=== PATIENT | male | born 1955 | race Hispanic/Latino ===

== ENCOUNTER 2016-12-16 15:51 | Emergency (ER) | payer MEDICARE ==
[~2016-12-16] VITALS: Ht 162.6 cm; Wt 60.0 kg
[~2016-12-16 15:51] MED LIST: ACCOLATE10 MG; ACTOS30 MG PO; ACTOS45 MG PO; AMOX/K CLAV875 M1 PO; BACTRIM DS1 TAB PO; CICLOPIROX NAIL L8 % EX; CIPRO XR500 MG PO; COUMADIN5 MG PO; DOXYCYCL HYC100 M3 OR; GABAPENTIN300 MG PO; GLUCOPHAGE500 MG OR; HUMALOG MIX 75/25 SC; HUMALOG100 MG/ML IM; HUMALOG100 MG/ML SC; HUMALOG100 UNIT/M SC; HUMULIN 70/30 SC; HUMULIN R1 M1 SC; INSULIN SY SC; JANUMET1 TAB PO; KEFLEX500 M1 PO; LEVEMIR SC; LEVEMIR1000 UNITS SC; LORATADINE10 M1 PO; LORTAB 5-325 MG1 TAB PO; LORTAB 5/3255 MG PO; LYRICA150 MG PO; METFORMIN500 MG PO; NAPROSYN500 MG OR; NEURONTIN300 MG PO; PERCOCET 5/325M1 TAB PO; PRAVASTATIN SOD10 MG PO; TERBINAFINE250 MG OR; ULTRAM50 M1 PO; VIAGRA50 MG PO; VICTOZA18 MG/3 ML SC; WARFARIN
[2016-12-16 16:23] LABS: HEMATOCRIT 42.4 % (39.0-50.0); HEMOGLOBIN 14.3 g/dl (14.0-18.0); IMMATURE GRANULOCYTES 0.8 % (0.0-1.0); MEAN CORPUSCULAR HGB 28.3 pG CALC (26.0-32.0); MEAN CORPUSCULAR HGB CONC 33.7 g/L CALC (32.0-36.0); NEUT# 3.15 thou/uL (1.82-7.42); RED BLOOD COUNT 5.05 mill/uL (4.70-6.10); RED CELL DISTRI WIDTH 12.9 % (11.5-15.5)
[2016-12-16 16:40] LABS: PROTHROMBIN TIME 10.8 SECONDS (9.0-12.5)
[2016-12-16 16:41] LABS: ALKALINE PHOSPHATASE 67 u/l (38-126); ANION GAP 14 (6-22 (CALC)); BILIRUBIN, TOTAL 0.6 mg/dL (0.0-1.4); BUN 17 mg/dL (8-23); BUN/CREATININE RATIO 32 (12-20 (CALC)); CARBON DIOXIDE 26 mmol/l (22-30); CHLORIDE 104 mmol/l (95-108); CREATININE 0.5 mg/dL (0.7-1.3); GFR > 60 ML/MIN (>=60 (CALC)); GFR FOR AFR.AMER. > 60 ML/MIN (>=60 (CALC)); GLUCOSE 92 mg/dL (82-115); POTASSIUM 3.8 mmol/l (3.5-5.1); SGOT/AST 23 u/l (19-48); SGPT/ALT 40 u/l (11-66); SODIUM 140 mmol/l (137-146); TOTAL PROTEIN 6.9 g/dL (6.3-8.2)
[2016-12-16 16:53] LABS: MYOGLOBIN 31 ng/mL (0 - 121)
[2016-12-16] MEDS ORDERED: NOVOLOG FL100 UNIT/M SC (17:12)
[2016-12-16] MEDS ORDERED: EC-NAPROSYN500 MG PO (17:41)
[2016-12-16 17:56] VITALS: BP 113/72
== END 2016-12-16 17:56 | disposition left against medical advice (07) ==
LOC: ED 15:51
PROVIDERS: Emergency Medicine
DX: E11.9 Type 2 diabetes mellitus without complications (principal); S30.0XXA Contusion of lower back and pelvis, initial encounter; R55 Syncope and collapse; M46.90 Unspecified inflammatory spondylopathy, site unspecified; I25.10 Atherosclerotic heart disease of native coronary artery without angina pectoris; F17.210 Nicotine dependence, cigarettes, uncomplicated; W18.39XA Other fall on same level, initial encounter; Y92.000 Kitchen of unspecified non-institutional (private) residence as the place of occurrence of the external cause; Z79.4 Long term (current) use of insulin

== ENCOUNTER 2017-03-03 15:55 | Inpatient (IN) | payer MEDICARE ==
[~2017-03-03] VITALS: Ht 162.6 cm; Wt 41.0 kg
[~2017-03-03 15:55] MED LIST changes: +EC-NAPROSYN500 MG PO; +NOVOLOG FL100 UNIT/M SC
[2017-03-03 17:13] LABS: HEMOGLOBIN 13.5 g/dl (14.0-18.0); IMMATURE GRANULOCYTES 0.5 % (0.0-1.0); MEAN CORPUSCULAR HGB 28.7 pG CALC (26.0-32.0); MEAN CORPUSCULAR HGB CONC 34.6 g/L CALC (32.0-36.0); NEUT# 5.16 thou/uL (1.82-7.42); RED BLOOD COUNT 4.7 mill/uL (4.70-6.10); RED CELL DISTRI WIDTH 12.6 % (11.5-15.5)
[2017-03-03 17:19] LABS: PROTHROMBIN TIME 10.6 SECONDS (9.0-12.5)
[2017-03-03 18:39] LABS: ALBUMIN 3.5 g/dL (3.2-5.0); ALKALINE PHOSPHATASE 86 u/l (38-126); ANION GAP 15 (6-22 (CALC)); BILIRUBIN, TOTAL 0.5 mg/dL (0.0-1.4); BUN 22 mg/dL (8-23); BUN/CREATININE RATIO 44 (12-20 (CALC)); CALCIUM 8.9 mg/dL (8.4-10.2); CARBON DIOXIDE 25 mmol/l (22-30); CHLORIDE 96 mmol/l (95-108); CREATININE 0.5 mg/dL (0.7-1.3); GFR > 60 ML/MIN (>=60 (CALC)); GFR FOR AFR.AMER. > 60 ML/MIN (>=60 (CALC)); GLUCOSE 395 mg/dL (82-115); LIPASE 482 u/l (23-300); POTASSIUM 4.3 mmol/l (3.5-5.1); SGOT/AST 17 u/l (19-48); SGPT/ALT 29 u/l (11-66); SODIUM 131 mmol/l (137-146); TOTAL PROTEIN 6.1 g/dL (6.3-8.2)
[2017-03-03 19:01] LABS: URINE BILIRUBIN - DIPSTICK NEGATIVE (NEGATIVE); URINE BLOOD DIPSTICK TRACE-INTACT (NEGATIVE); URINE CLARITY CLEAR; URINE COLOR YELLOW; URINE GLUCOSE - DIPSTICK >=1000 mg/dL (NEGATIVE); URINE KETONE NEGATIVE (NEGATIVE); URINE LEUK ESTERASE SMALL (Negative); URINE NITRITE - DIPSTICK NEGATIVE (Negative); URINE PROTEIN - DIPSTICK NEGATIVE (NEG-TRACE); URINE UROBILINOGEN - DIPSTICK 0.2 E.U./dL (0.2)
[2017-03-03] MEDS ORDERED: LEVEMIR100 UNIT/M SC (19:10)
[2017-03-03 19:13] LABS: URINE BACTERIA RARE hpf; URINE SQUAMOUS EPITHELIAL CELL FEW EPI/hpf (0-FEW)
[2017-03-03 19:14] LABS: URINE YEAST MODERATE hpf
[2017-03-03 19:20] LABS: MYOGLOBIN 47 ng/mL (0 - 121)
[2017-03-03 22:15] VITALS: BP 121/69
[2017-03-04] VITALS (8 sets, daily range): BP systolic 92–125; BP diastolic 55–81
[2017-03-04 05:56] LABS: HEMATOCRIT 39.2 % (39.0-50.0); HEMOGLOBIN 13.1 g/dl (14.0-18.0); IMMATURE GRANULOCYTES 0.3 % (0.0-1.0); MEAN CELL VOLUME 83.6 fL CALC (80.0-100.0); MEAN CORPUSCULAR HGB 27.9 pG CALC (26.0-32.0); MEAN CORPUSCULAR HGB CONC 33.4 g/L CALC (32.0-36.0); NEUT# 3.51 thou/uL (1.82-7.42); RED BLOOD COUNT 4.69 mill/uL (4.70-6.10); RED CELL DISTRI WIDTH 12.8 % (11.5-15.5)
[2017-03-04 06:17] LABS: ANION GAP 12 (6-22 (CALC)); BUN 12 mg/dL (8-23); BUN/CREATININE RATIO 27 (12-20 (CALC)); CALCIUM 8.2 mg/dL (8.4-10.2); CARBON DIOXIDE 24 mmol/l (22-30); CHLORIDE 103 mmol/l (95-108); CREATININE 0.4 mg/dL (0.7-1.3); GFR > 60 ML/MIN (>=60 (CALC)); GFR FOR AFR.AMER. > 60 ML/MIN (>=60 (CALC)); GLUCOSE 248 mg/dL (82-115); POTASSIUM 4.4 mmol/l (3.5-5.1); SODIUM 135 mmol/l (137-146)
[2017-03-04] MEDS ORDERED: ADLT ASA LOW81 MG PO (09:54)
[2017-03-04] MEDS ORDERED: ATORVASTATIN CA40 MG PO (09:54)
[2017-03-04] MEDS ORDERED: ZOFRAN ODT4 MG PO (09:55)
[2017-03-04] MEDS ORDERED: LEVAQUIN500 MG PO (09:55)
== END 2017-03-04 11:05 | disposition home or self-care (01) | DRG 195 ==
LOC: ED 15:55 → ED-I 20:59 → ED 21:46 → ICU 21:47 → MS2 21:47 → ICU 23:02
PROVIDERS: Emergency Medicine; ADMIT Internal Medicine; ATTEND Internal Medicine
DX: J18.9 Pneumonia, unspecified organism (principal); E11.9 Type 2 diabetes mellitus without complications; I25.10 Atherosclerotic heart disease of native coronary artery without angina pectoris; M47.9 Spondylosis, unspecified; F17.210 Nicotine dependence, cigarettes, uncomplicated; Z91.81 History of falling; Z79.4 Long term (current) use of insulin
CPT/HCPCS: Q9967

== ENCOUNTER 2017-06-26 18:35 | Emergency (ER) | payer OTHER, MEDICARE, MEDICAID ==
[~2017-06-26] VITALS: Ht 162.6 cm; Wt 38.6 kg
[~2017-06-26 18:35] MED LIST changes: +ADLT ASA LOW81 MG PO; +ATORVASTATIN CA40 MG PO; +LEVAQUIN500 MG PO; +LEVEMIR100 UNIT/M SC; +ZOFRAN ODT4 MG PO
[2017-06-26] MEDS ORDERED: ULTRAM50 MG PO (20:03)
[2017-06-26] MEDS ORDERED: ORPHENADRINE100 MG PO (20:03)
[2017-06-26 20:28] VITALS: BP 114/58
== END 2017-06-26 20:30 | disposition home or self-care (01) | DRG 552 ==
LOC: ED 18:35
DX: S16.1XXA Strain of muscle, fascia and tendon at neck level, initial encounter (principal); E11.65 Type 2 diabetes mellitus with hyperglycemia; Z79.4 Long term (current) use of insulin; V44.6XXA Car passenger injured in collision with heavy transport vehicle or bus in traffic accident, initial encounter; Y92.414 Local residential or business street as the place of occurrence of the external cause

== ENCOUNTER 2017-11-17 10:55 | Emergency (ER) | payer MEDICARE, MEDICAID ==
[~2017-11-17] VITALS: Ht 162.6 cm; Wt 40.0 kg
[~2017-11-17 10:55] MED LIST changes: +ORPHENADRINE100 MG PO; +ULTRAM50 MG PO
[2017-11-17 11:23] LABS: HEMATOCRIT 36.7 % (39.0-50.0); HEMOGLOBIN 12.3 g/dl (14.0-18.0); IMMATURE GRANULOCYTES 0.8 % (0.0-1.0); MEAN CELL VOLUME 84.4 fL CALC (80.0-100.0); MEAN CORPUSCULAR HGB 28.3 pG CALC (26.0-32.0); MEAN CORPUSCULAR HGB CONC 33.5 g/L CALC (32.0-36.0); NEUT# 3.51 thou/uL (1.82-7.42); RED BLOOD COUNT 4.35 mill/uL (4.70-6.10); RED CELL DISTRI WIDTH 12.7 % (11.5-15.5)
[2017-11-17 11:31] LABS: ALBUMIN 3.2 g/dL (3.2-5.0); ALKALINE PHOSPHATASE 97 u/l (38-126); ANION GAP 13 (6-22 (CALC)); BILIRUBIN, TOTAL 0.3 mg/dL (0.0-1.4); BUN 13 mg/dL (8-23); BUN/CREATININE RATIO 26 (12-20 (CALC)); CARBON DIOXIDE 26 mmol/l (22-30); CHLORIDE 101 mmol/l (95-108); CREATININE 0.5 mg/dL (0.7-1.3); GFR > 60 ML/MIN (>=60 (CALC)); GFR FOR AFR.AMER. > 60 ML/MIN (>=60 (CALC)); POTASSIUM 3.6 mmol/l (3.5-5.1); SGOT/AST 18 u/l (19-48); SGPT/ALT 34 u/l (11-66); SODIUM 136 mmol/l (137-146); TOTAL PROTEIN 5.9 g/dL (6.3-8.2)
[2017-11-17] MEDS ORDERED: OMEPRAZOLE10 MG PO (11:41)
[2017-11-17 11:43] LABS: MYOGLOBIN 19 ng/mL (0 - 121)
[2017-11-17 12:00] LABS: TSH, 3RD GENERATION 0.5 uIU/mL (0.47 - 4.68)
[2017-11-17 12:15] LABS: URINE BILIRUBIN - DIPSTICK NEGATIVE (NEGATIVE); URINE BLOOD DIPSTICK NEGATIVE (NEGATIVE); URINE COLOR YELLOW; URINE GLUCOSE - DIPSTICK >=1000 mg/dL (NEGATIVE); URINE KETONE NEGATIVE (NEGATIVE); URINE LEUK ESTERASE NEGATIVE (NEGATIVE); URINE NITRITE - DIPSTICK NEGATIVE (Negative); URINE PROTEIN - DIPSTICK NEGATIVE (NEG-TRACE); URINE SPECIFIC GRAVITY <=1.005; URINE UROBILINOGEN - DIPSTICK 0.2 E.U./dL (0.2)
[2017-11-17 12:28] LABS: URINE CLARITY CLEAR
[2017-11-17 13:04] VITALS: BP 141/66
== END 2017-11-17 13:17 | disposition home or self-care (01) ==
LOC: ED 10:55 → ED-I 12:49 → ED 12:49 → ED-I 12:57 → ED 13:17
PROVIDERS: Emergency Medicine
DX: R41.82 Altered mental status, unspecified (principal); R53.1 Weakness; R53.83 Other fatigue; W18.39XA Other fall on same level, initial encounter; Y93.89 Activity, other specified; Y92.007 Garden or yard of unspecified non-institutional (private) residence as the place of occurrence of the external cause

== ENCOUNTER 2018-03-15 10:24 | Emergency (ER) | payer MEDICARE ==
[~2018-03-15] VITALS: Ht 162.6 cm; Wt 37.8 kg
[~2018-03-15 10:24] MED LIST changes: +OMEPRAZOLE10 MG PO
[2018-03-15 11:25] LABS: URINE BILIRUBIN - DIPSTICK NEGATIVE (NEGATIVE); URINE BLOOD DIPSTICK NEGATIVE (NEGATIVE); URINE COLOR YELLOW; URINE GLUCOSE - DIPSTICK >=1000 mg/dL (NEGATIVE); URINE KETONE NEGATIVE (NEGATIVE); URINE LEUK ESTERASE NEGATIVE (NEGATIVE); URINE NITRITE - DIPSTICK NEGATIVE (Negative); URINE PH 5.5 (4.5-8.0); URINE PROTEIN - DIPSTICK NEGATIVE (NEG-TRACE); URINE SPECIFIC GRAVITY 1.015; URINE UROBILINOGEN - DIPSTICK 0.2 E.U./dL (0.2)
[2018-03-15 11:26] LABS: URINE CLARITY CLEAR
[2018-03-15 12:02] LABS: IMMATURE GRANULOCYTES 0.4 % (0.0-5.0); MEAN CELL VOLUME 83.8 fL CALC (80.0-100.0); MEAN CORPUSCULAR HGB 27.8 pG CALC (26.0-32.0); MEAN CORPUSCULAR HGB CONC 33.2 g/L CALC (32.0-36.0); NEUT# 3.08 thou/uL (1.82-7.42); RED BLOOD COUNT 5.18 mill/uL (4.70-6.10); RED CELL DISTRI WIDTH 12.7 % (11.5-15.5)
[2018-03-15 12:03] LABS: HEMATOCRIT 43.4 % (39.0-50.0); HEMOGLOBIN 14.4 g/dl (14.0-18.0)
[2018-03-15] MEDS ORDERED: CEPHALEXIN500 M1 PO (12:07)
[2018-03-15 12:45] LABS: ALBUMIN 3.7 g/dL (3.2-5.0); ALKALINE PHOSPHATASE 119 u/l (38-126); ANION GAP 14 (6-22 (CALC)); BILIRUBIN, TOTAL 0.5 mg/dL (0.0-1.4); BUN 15 mg/dL (8-23); BUN/CREATININE RATIO 26 (12-20 (CALC)); CARBON DIOXIDE 31 mmol/l (22-30); CHLORIDE 93 mmol/l (95-108); CREATININE 0.6 mg/dL (0.7-1.3); GFR > 60 ML/MIN (>=60 (CALC)); GFR FOR AFR.AMER. > 60 ML/MIN (>=60 (CALC)); SGOT/AST 12 u/l (19-48); SODIUM 133 mmol/l (137-146); TOTAL PROTEIN 6.4 g/dL (6.3-8.2)
[2018-03-15] MEDS ORDERED: SB CLOTRIMAZ1 % EX (13:21)
[2018-03-15 14:33] VITALS: BP 127/70
== END 2018-03-15 14:45 | disposition home or self-care (01) ==
LOC: ED 10:24
PROVIDERS: Family Medicine
DX: N47.6 Balanoposthitis (principal); E11.65 Type 2 diabetes mellitus with hyperglycemia; F17.210 Nicotine dependence, cigarettes, uncomplicated

== ENCOUNTER 2018-07-14 11:54 | Inpatient (IN) | payer MEDICARE, MEDICAID ==
[~2018-07-14] VITALS: Ht 147.3 cm; Wt 38.3 kg
[~2018-07-14 11:54] MED LIST changes: +CEPHALEXIN500 M1 PO; +SB CLOTRIMAZ1 % EX
--- NOTE | 2018-07-14 11:54 | NUR ---
PT IMMEDIATELY TO TX ROOM FOR BEDSIDE TRIAGE.PTS GENERAL APPEARANCE GOOD. SKIN PWD. NO DISTRESS. PT REPORTS CP AND SOB X1 WEEK. RELATES PAIN INCREASES WITH DEEP INSPIRAITON
--- NOTE | 2018-07-14 12:11 | NUR ---
PT STATES THAT HE HAS UNRESOLVING C/P FOR A WEEK. PT IS AO4. STATES FEELING SOB, WITH A COUGH- WITH SOME PHLEM BUT THAT IS NORMAL FOR PT. PT STATES PAIN IS NONE RADIATING. PT DENIES N/V OR WEAKNESS.
[2018-07-14 12:30] LABS: HEMATOCRIT 41.7 % (39.0-50.0); HEMOGLOBIN 14.2 g/dl (14.0-18.0); IMMATURE GRANULOCYTES 0.4 % (0.0-5.0); MEAN CELL VOLUME 84.8 fL CALC (80.0-100.0); MEAN CORPUSCULAR HGB 28.9 pG CALC (26.0-32.0); MEAN CORPUSCULAR HGB CONC 34.1 g/L CALC (32.0-36.0); NEUT# 5.05 thou/uL (1.82-7.42); RED BLOOD COUNT 4.92 mill/uL (4.70-6.10); RED CELL DISTRI WIDTH 13.7 % (11.5-15.5)
[2018-07-14 12:43] LABS: ALBUMIN 4.1 g/dL (3.2-5.0); ALKALINE PHOSPHATASE 100 u/l (38-126); ANION GAP 17 (6-22 (CALC)); BILIRUBIN, TOTAL 0.7 mg/dL (0.0-1.4); BUN 13 mg/dL (8-23); BUN/CREATININE RATIO 25 (12-20 (CALC)); CARBON DIOXIDE 26 mmol/l (22-30); CHLORIDE 94 mmol/l (95-108); CREATININE 0.5 mg/dL (0.7-1.3); GFR > 60 ML/MIN (>=60 (CALC)); GFR FOR AFR.AMER. > 60 ML/MIN (>=60 (CALC)); LIPASE 123 u/l (23-300); POTASSIUM 4.4 mmol/l (3.5-5.1); SODIUM 133 mmol/l (137-146)
[2018-07-14 12:49] LABS: SGOT/AST 24 u/l (19-48)
--- NOTE | 2018-07-14 13:11 | NUR ---
PT RESTING ON STRETCHER, NO COMPLAINTS STATED AT THIS TIME/.
--- NOTE | 2018-07-14 14:09 | NUR ---
PT TO CT, REPORT ATTEMPTD TO MS2- NURSE WILL RETURN CALL
[2018-07-14 14:28] LABS: URINE BILIRUBIN - DIPSTICK NEGATIVE (NEGATIVE); URINE BLOOD DIPSTICK TRACE-LYSED (NEGATIVE); URINE COLOR YELLOW; URINE GLUCOSE - DIPSTICK >=1000 mg/dL (NEGATIVE); URINE KETONE TRACE mg/dL (NEGATIVE); URINE LEUK ESTERASE SMALL (Negative); URINE NITRITE - DIPSTICK NEGATIVE (Negative); URINE PH 5.5 (4.5-8.0); URINE PROTEIN - DIPSTICK NEGATIVE (NEG-TRACE); URINE UROBILINOGEN - DIPSTICK 0.2 E.U./dL (0.2)
--- NOTE | 2018-07-14 14:28 | NUR ---
NICOLE BENNETT CALLED FOR REPORT- ACCEPTED PT
[2018-07-14 14:29] LABS: URINE CLARITY CLEAR
[2018-07-14 14:37] LABS: URINE YEAST FEW hpf
--- NOTE | 2018-07-14 14:41 | NUR ---
Admission Note Report Given to: NICOLE DONALD Transported by: Wheelchair X Stretcher Transported with: X Nurse Transporter X Patent IV O2 X Respiratory Therapist TRANSPORTED [place] [facility] [place]
[2018-07-14 14:45] VITALS: BP 108/63
--- NOTE | 2018-07-14 14:45 | NUR ---
PT ARRIVED FROM ER VIA STRETCHER ACCOMPANIED BY STAFF, IV SITE IS FREE FROM REDNESS OR EDEMA. CONTINUE TO OBSERVE AND MONITOR.
--- NOTE | 2018-07-14 15:20 | NUR ---
ASSESSMENT IS COMPLETED PT IS ALERT AND ORIENTED. IV SITE IS FREE FROM REDNESS OR EDEMA. HR IS REG,PULSES ARE STRONG X4, ABD IS SOFT WITH ACTIVE BS. BREATH SOUNDS ARE CLEAR, BILATERALLY, TELE MONITOR IN PLACE. PT C/O R BIG TOE HURTING FROM A TOENAIL THAT CAME OFF YESTERDAY.
[2018-07-14 16:00] VITALS: BP 119/74
--- NOTE | 2018-07-14 17:00 | NUR ---
PT WENT FOR AN ECHOCARDIOGRAM. TRANSFERED WELL. RETURNED AT 1730.
[2018-07-14 19:10] VITALS: BP 103/59
--- NOTE | 2018-07-14 19:57 | NUR ---
PT. RESTING IN BED WITH EYES CLOSED; NO DISTRESS NOTED; DENIES NEEDS/PAIN. ASSESSMENT COMPLETED; IV SITE PATENT AND SL; UPDATED ON POC; RIGHT GREAT TOE IS WITH NAIL MISSING PER PT IT CAME OFF YESTERDAY; SLIGHT BLACK SCABBING NOTED AND PINKENED AREA NOTED; CELESTE; ENCOURAGED TO CALL FOR ANY NEEDS; URINAL IS AT BEDSIDE AND CALL LIGHT IS IN REACH; WILL CONTINUE TO MONITOR.
--- NOTE | 2018-07-14 20:05 | NUR ---
ASSESSMENT COMPLETED; NO DISTRESS NOTED; DENIES PAIN AT THIS TIME JUST CONTINUES TO REPORT NUMBNESS TO BLE; PT. IS ABLE TO MOVE ALL EXTREMETIES WITHOUT DIFFICULTY; UPDATED ON POC; INSTRUCTED TO CALL FOR ANY NEEDS; CALL LIGHT IS IN REACH; WILL CONTINUE TO MONITOR.
--- NOTE | 2018-07-14 22:28 | NUR ---
NOTIFIED DR. CAMEJO OF CRITICAL GLUCOSE BEING 511 AND ALSO OF ORDERED MEDICATIONS TO GIVE TO COVER; NEW ORDERS RECEIVED FOR AN INCREASED DOSE OF LEVEMIR FOR TONIGHT; ALSO NOTIFIED HIM OF ER CALLING AT THIS TIME THAT PT'S HR IS 120-130'S AND HAS BEEN LOW 100'S TODAY; NEW ORDER FOR IV LOPRESSOR AND TO BE CARRIED OUT WHEN MEDICATION PROFILED;
--- NOTE | 2018-07-14 23:53 | NUR ---
PT. RESTING IN BED WITH EYES CLOSED; NO DISTRESS NOTED; RESP EVEN AND UNLABORED; CALL LIGHT IS IN REACH.
[2018-07-15 00:16] VITALS: BP 103/57
--- NOTE | 2018-07-15 03:55 | NUR ---
PT. RESTING IN BED ON RIGHT SIDE WITH EYES CLOSED; RESP EVEN AND UNLABORED; RESP EVEN AND UNLABORED; CALL LIGHT IS IN REACH.
--- NOTE | 2018-07-15 05:20 | NUR ---
PT. SITTING UP ON THE SIDE OF THE BED; NO DISTRESS NOTED; SCHED MED GIVEN. NARE SWABBED FOR HX:MRSA; FRESH WATER GIVEN; DENIES NEEDS; CALL LIGHT IS IN REACH.
[2018-07-15 05:33] VITALS: BP 105/53
[2018-07-15 05:38] LABS: IMMATURE GRANULOCYTES 0.8 % (0.0-5.0); MEAN CELL VOLUME 84.4 fL CALC (80.0-100.0); MEAN CORPUSCULAR HGB 28.1 pG CALC (26.0-32.0); MEAN CORPUSCULAR HGB CONC 33.3 g/L CALC (32.0-36.0); RED BLOOD COUNT 4.62 mill/uL (4.70-6.10); RED CELL DISTRI WIDTH 13.5 % (11.5-15.5)
[2018-07-15 05:40] LABS: ALBUMIN 3.6 g/dL (3.2-5.0); ALKALINE PHOSPHATASE 89 u/l (38-126); AMYLASE < 30 u/l (30-110); ANION GAP 14 (6-22 (CALC)); BILIRUBIN, TOTAL 0.3 mg/dL (0.0-1.4); BUN 18 mg/dL (8-23); BUN/CREATININE RATIO 31 (12-20 (CALC)); CARBON DIOXIDE 30 mmol/l (22-30); CHLORIDE 97 mmol/l (95-108); CREATININE 0.6 mg/dL (0.7-1.3); GFR > 60 ML/MIN (>=60 (CALC)); GFR FOR AFR.AMER. > 60 ML/MIN (>=60 (CALC)); LIPASE 57 u/l (23-300); POTASSIUM 4.2 mmol/l (3.5-5.1); SGOT/AST 15 u/l (19-48); SODIUM 137 mmol/l (137-146); TOTAL PROTEIN 5.9 g/dL (6.3-8.2)
--- NOTE | 2018-07-15 06:00 | NUR ---
NOTIFIED DR. CAMEJO OF CRITICAL GLUCOSE; NEW ORDERS RECEIVED AND TO BE CARRIED OUT.
--- NOTE | 2018-07-15 07:15 | NUR ---
PT REPORT RECIEVED FROM KAREN FLORES. PT SLEEPING. NO S/S OF DISTRESS. CALL LIGHT IN REACH.
[2018-07-15 08:38] VITALS: BP 114/66
--- NOTE | 2018-07-15 08:38 | NUR ---
PT A/O X3. SPEECH IS CLEAR. RESP EVEN AND UNLABORED. TELE IN PLACE. BOWEL SOUNDS ACTIVE X4. STRONG RADIAL, WEAK PEDAL PULSES. #20 RAC SL. FLUSHED AND PATENT. SITE APPEARS HEALTHY. PT DENIES ANY PAIN OR NEEDS. POC DISCUSSED. SAFETY PTRECAUTIONS IN PLACE. CALL LIGHT IN REACH. WILL CONTINUE TO MONITOR.
--- NOTE | 2018-07-15 09:15 | NUR ---
NEB TX NOT GIVEN. PT. IN SHOWER.
--- NOTE | 2018-07-15 11:10 | NUR ---
DR. ANDERSON IN TO SEE PT
[2018-07-15 11:34] VITALS: BP 140/82
--- NOTE | 2018-07-15 11:44 | NUR ---
PT SITTING IN BED WATCHING TELEVISION. NO C/O PAIN OR NEEDS. CALL LIGHT IN REACH. WILL CONTINUE TO MONITOR
--- NOTE | 2018-07-15 12:10 | NUR ---
PT GLUCOSE READING 567. NOTIFIED. PT GIVEN SCHEDULED NOVOLOG. NO NEW ORDERS AT THIS TIME.
--- NOTE | 2018-07-15 12:40 | NUR ---
I called to verify the consultation with Dr. Lopez @1241 pm. He stated that he wanted to speak to Dr. Bianchi personally about the consultation.
--- NOTE | 2018-07-15 15:24 | NUR ---
PT WATCHING TELEVISION. NO C/O PAIN OR NEEDS. CALL LIGHT IN REACH. WILL CONTINUE TO MONITOR
--- NOTE | 2018-07-15 16:03 | NUR ---
S: THERESA TOWNSEND is a 62 M who presents with right big toe ulcer. He has a history of T2DM, tobacco use, and COPD. All medications in patient's chart were reviewed. O: VS: BP 140/82, P 90, RR 18,T 95 W 38.3 kg, HT 58 in, Scr=0.6, CrCl= 67.7 ml/min A: MRSA surveillance screen pending P: Patient is on rocephin 1 g IV q24h and azithromycin 500 mg IV q24h. Vancomycin ordered for pharmacy to dose. Start Vancomycin 1 g IV Q24H. Vancomycin trough is drawn before the 4th dose on 07/18/18 @1530. Vancomycin goal trough is between 10-20 mcg/ml. Pharmacy will follow and or advise on antibiotics use as needed.
[2018-07-15 16:11] VITALS: BP 138/75
--- NOTE | 2018-07-15 16:19 | NUR ---
CHIEF HUMAN RESOURCES OFFICER IN TO SEE PT
[2018-07-15 19:10] VITALS: BP 109/54
--- NOTE | 2018-07-15 19:25 | NUR ---
PT. RESTING IN BED WITH NO DISTRESS NOTED; O2 INFUSING PER NC PER ORDER; ASSESSMENT COMPLETED; URINE AND STOOL SAMPLE COLLECTED ORDERED; DRESSING IS CDI TO RIGHT FOOT; FAMILY AT BEDSIDE AND DENIES NEEDS; ENCOURAGED TO CALL FOR ANY NEEDS; CALL LIGHT IS IN REACH; WILL CONTINUE TO MONITOR.
[2018-07-15 21:29] LABS: C. DIFFICILE TOXIN A&B NEGATIVE (NEGATIVE)
--- NOTE | 2018-07-15 23:31 | NUR ---
PT. RESTING IN BED ON RIGHT SIDE WITH NO DISTRESS NOTED; DENIES NEEDS/PAIN; ENCOURAGED TO CALL FOR ANY NEEDS; CALL LIGHT IS IN REACH.
[2018-07-16 00:10] VITALS: BP 102/45
--- NOTE | 2018-07-16 03:40 | NUR ---
PT. RESTING IN BED ON LEFT SIDE WITH EYES CLOSED; NO DISTRESS NOTED; RESP EVEN AND UNLABORED; CALL LIGHT IS IN REACH; WILL CONTINUE TO MONITOR.
[2018-07-16 04:00] VITALS: BP 126/70
[2018-07-16 05:05] LABS: HEMOGLOBIN 11.8 g/dl (14.0-18.0); IMMATURE GRANULOCYTES 1.6 % (0.0-5.0); MEAN CELL VOLUME 85.7 fL CALC (80.0-100.0); MEAN CORPUSCULAR HGB 28.1 pG CALC (26.0-32.0); MEAN CORPUSCULAR HGB CONC 32.8 g/L CALC (32.0-36.0); NEUT# 7.31 thou/uL (1.82-7.42); RED BLOOD COUNT 4.2 mill/uL (4.70-6.10)
[2018-07-16 05:57] LABS: ALBUMIN 3.4 g/dL (3.2-5.0); ALKALINE PHOSPHATASE 72 u/l (38-126); BILIRUBIN, TOTAL 0.2 mg/dL (0.0-1.4); BUN 17 mg/dL (8-23); BUN/CREATININE RATIO 23 (12-20 (CALC)); CARBON DIOXIDE 29 mmol/l (22-30); CHLORIDE 99 mmol/l (95-108); CREATININE 0.7 mg/dL (0.7-1.3); GFR > 60 ML/MIN (>=60 (CALC)); GFR FOR AFR.AMER. > 60 ML/MIN (>=60 (CALC)); SGOT/AST 15 u/l (19-48); SODIUM 138 mmol/l (137-146); TOTAL PROTEIN 5.7 g/dL (6.3-8.2)
[2018-07-16 05:58] LABS: ANION GAP 15 (6-22 (CALC)); POTASSIUM 5.1 mmol/l (3.5-5.1)
--- NOTE | 2018-07-16 06:13 | NUR ---
ATTEMPTED TO CALL DR. CAMEJO 2 X'S TO NOTIFY FOR CRITICAL GLUCOSE WITH NO ANSWER AND MAIL BOX IS FULL; WILL ATTEMPT TO CALL AGAIN SHORTLY.
--- NOTE | 2018-07-16 06:18 | NUR ---
MEDICATED WITH 14 UNITS OF NOVOLOG PER SLIDING SCALE COVERAGE OF BS 521.
--- NOTE | 2018-07-16 07:05 | NUR ---
REPORT RECIEVED FROM KAREN FLORES. PT SLEEPING, NO S/S OF DISTRESS. CALL LIGHT IN REACH. WILL CONTINUE TO MONITOR
[2018-07-16 07:30] VITALS: BP 122/55
--- NOTE | 2018-07-16 07:30 | NUR ---
PT A/O X3. SPEECH IS CLEAR. RESP EVEN AND UNLABORED. LUNG SOUNDS CLEAR. TELE IN PLACE. BOWEL SOUNDS ACTIVE X4. STRONG RADIAL AND PEDAL PULSES. #20 RAC SL. FLUSHED AND PATENT. SITE HEALTHY. PT HAS A NICOTINE PATCH TO NASH, AMOS NICOTINE PATCH REMOVED. PT HAS A DRESSING TO HIS RT GREAT TOE;CDI. NO C/O PAIN OR NEEDS. POC DISCUSSED. SAFETY PRECAUTIONS IN PLACE. CALL LIGHT IN REACH. WILL CONTINUE TO MONITOR.
--- NOTE | 2018-07-16 10:00 | NUR ---
PT DRESSING TO RT GREAT TOE REMOVED. NO DRAINAGE OR SWELLING VISIBLE. CLEANED W/ SALINE. BETADINE APPLIED, KERLIX APPLIED. WILL CONTINUE TO MONITOR
[2018-07-16 11:42] VITALS: BP 108/55
--- NOTE | 2018-07-16 12:05 | NUR ---
PT EATING LUNCH. NO C/O PAIN OR NEEDS. CALL LIGHT IN REACH. WILL CONTINUE TO MONITOR
[2018-07-16 15:32] VITALS: BP 112/58
--- NOTE | 2018-07-16 16:00 | NUR ---
PT RESTING IN BED. NO NC/O PAIN OR NEEDS. CALL LIGHT IN REACH. WILL CONTINUE TO MONITOR.
[2018-07-16 19:10] VITALS: BP 113/61
--- NOTE | 2018-07-16 19:20 | NUR ---
BEDSIDE REPORT RECEIVED FROM DONALD ONTIVEROS. PT RESTING IN BED SEMI FOWLERS; ALERT AND ORIENTED. C/O MILD PAIN TO HANDS AND FEET. RESPIRATIONS EVEN AND UNLABORED ON ROOM AIR. PLAN OF CARE REVIEWED. PT ENCOURAGED TO VERBALIZE CONCERNS. STATES UNDERSTANDING AND REQUESTS COFFEE. SAFETY MEASURES IN PLACE. CALL LIGHT WITHIN REACH.
--- NOTE | 2018-07-16 21:43 | NUR ---
PT AMBULATING TO BATHROOM; AT BEDSIDE. GLUCOSE ELEVATED AT 413; 14 UNITS GIVEN AND MD NOTIFIED.
--- NOTE | 2018-07-17 | NUR ---
PT ASLEEP AT THIS TIME WITH NO SIGNS OF DISTRESS. RESPIRATIONS EVEN AND UNLABROED ON ROOM AIR. IV SITE APPEARS HEALTHY AND FLUSHES. AMBUALTES INDEPENDENTLY IN ROOM. SAFETY MEASURES IN PLACE. CALL LIGHT WITHIN REACH.
[2018-07-17 00:20] VITALS: BP 111/59
[2018-07-17 03:46] VITALS: BP 122/75
--- NOTE | 2018-07-17 05:05 | NUR ---
PT C/O PAIN TO HANDS AND FEET; WILL ADMINISTER SECOND DOSE OF TYLENOL THIS SHIFT. NO OTHER REQUESTS OR CONCERNS. REMAINS ON CONTACT PRECAUTIONS FOR HX OF MRSA. SAFETY MEASURES IN PLACE. CALL LIGHT WIHTIN REACH.
--- NOTE | 2018-07-17 05:28 | NUR ---
TYLENOL GIVEN. DRESSING TO RIGHT GREAT TOE IS CDI.
[2018-07-17 06:28] LABS: HEMATOCRIT 36.2 % (39.0-50.0); HEMOGLOBIN 11.8 g/dl (14.0-18.0); IMMATURE GRANULOCYTES 1.6 % (0.0-5.0); MEAN CELL VOLUME 86.2 fL CALC (80.0-100.0); MEAN CORPUSCULAR HGB 28.1 pG CALC (26.0-32.0); MEAN CORPUSCULAR HGB CONC 32.6 g/L CALC (32.0-36.0); NEUT# 7.04 thou/uL (1.82-7.42); RED BLOOD COUNT 4.2 mill/uL (4.70-6.10); RED CELL DISTRI WIDTH 14.3 % (11.5-15.5)
[2018-07-17 06:40] LABS: ALBUMIN 3.3 g/dL (3.2-5.0); ALKALINE PHOSPHATASE 72 u/l (38-126); ANION GAP 15 (6-22 (CALC)); BILIRUBIN, TOTAL 0.2 mg/dL (0.0-1.4); BUN 18 mg/dL (8-23); BUN/CREATININE RATIO 39 (12-20 (CALC)); CARBON DIOXIDE 29 mmol/l (22-30); CHLORIDE 97 mmol/l (95-108); CREATININE 0.5 mg/dL (0.7-1.3); GFR > 60 ML/MIN (>=60 (CALC)); GFR FOR AFR.AMER. > 60 ML/MIN (>=60 (CALC)); POTASSIUM 4.4 mmol/l (3.5-5.1); SGOT/AST 23 u/l (19-48); SODIUM 136 mmol/l (137-146); TOTAL PROTEIN 5.6 g/dL (6.3-8.2)
--- NOTE | 2018-07-17 07:20 | NUR ---
REPORT RECEIVED FROM KAREN NOVOA; PT LAYING IN BED WITH EYES CLOSED, RESP EVEN AND UNLABORED; L SIDE RAIL DOWN, KAREN NOVOA SAYS PT AMBULATORY IN ROOM, L BED RAIL REMIAN DOWN.
[2018-07-17 08:02] VITALS: BP 124/71
--- NOTE | 2018-07-17 08:03 | NUR ---
ASSESSMENT COMPLETED; RESP EVEN AND UNLABRED; PULSES STRONG; LUNGS CLEAR; TELE IN PLACE; NITRO PASTE APPLIED TO R SHOULDER; ABD SOFT NON TENDER; DRESSING TO RIGHT GREAT TOE CDI; C/O NO PAIN; IV #20 RAC, FLUSHED WITHOUT DIFFICULTY; SITE APPEARS HEALTHY; RAILS PADDED FOR SEIZURE PRECAUTION; AM MEDS ADMINISTERED, TOLERATED WELL; CALL YI IN REACH; PT NOW SITTING UP EDGE OF BED EATING BREAKFAST;
[2018-07-17 11:50] VITALS: BP 116/65
--- NOTE | 2018-07-17 11:56 | NUR ---
SPEECH THERAPIST AT BEDSIDE; RESP EVEN AND UNLABORED; NO S/O OF DISTRESS NOTED; CALL YI IN REACH; SAFETY PRECAUTION REINFORCE;
--- NOTE | 2018-07-17 12:33 | NUR ---
Patient is a 62 year old male emigree from [place] who was admitted via ER on 07/15/18 with complaints of chest pain and shortness of breath. Pain is reported to worsen with deep inspiration. Patient has diagnosis of COPD and is a current smoker of 1.5 - 2 packs of cigarettes daily. Additional issues being addressed are hyperglycemia and MRSA in urine. He stated he has cataracts with diminished visual acuity. Patient is alert and oriented to person, place, time and situation. He reports occasional feeling of liquids "being stuck" in his throat with subsequent vomiting for 4-6 months. Patient stated this is not a daily occurrence. The oral examination revealed the patient to be edentulous, lingual and labial ROM and strength within normal limits. Adequate lip seal and gag reflex. Patient was observed eating noon meal, a regular diet with limited sodium and sugar. He positioned himself on the side of the bed at a 90 degree angle. Patient eats quickly and consistently takes large bites. He states he is able to masticate "anything" without teeth and consumed a baked chicken breast, mashed potatoes, dinner roll, salad and fruit without difficulty. Prompts to slow rate and decrease size of bolus were unremarkable. Patient states he feels food "stuck" also but it only lasts "a minute" and rarely results in vomiting. Per bedside evaluation, this patient experiences oropharyngeal dysphagia. Though his lung sounds remain clear at this time, this patient will require an MBSS to determine the cause of his complaints and to assess the risk for aspiration and/or worsening dysphagia. Recommend this patient to remain on current diet with follow up per physician discretion. Thank you for this referral. John Zelaya M.A., [facility]-HYDROG[facility] BRAZE FURNACE OPERATOR
--- NOTE | 2018-07-17 13:51 | NUR ---
DR ANDERSON AND SANTOS ALCANTARA AT BEDSIDE TO DISCUSS POC.
--- NOTE | 2018-07-17 16:06 | NUR ---
LAYING IN BED WATCHING TV WITH FAMILY MEMBERS; RESP EVEN AND UNLABORED; VANO INFUSING WITHOUT DIFFICULTY; VOICE NO CONCERNS; CALL YI IN REACH.
[2018-07-17 16:20] VITALS: BP 123/71
[2018-07-17 17:52] LABS: ANION GAP 14 (6-22 (CALC)); BUN 23 mg/dL (8-23); BUN/CREATININE RATIO 41 (12-20 (CALC)); CARBON DIOXIDE 29 mmol/l (22-30); CHLORIDE 95 mmol/l (95-108); CREATININE 0.6 mg/dL (0.7-1.3); GFR > 60 ML/MIN (>=60 (CALC)); GFR FOR AFR.AMER. > 60 ML/MIN (>=60 (CALC)); POTASSIUM 4.9 mmol/l (3.5-5.1); SODIUM 133 mmol/l (137-146)
--- NOTE | 2018-07-17 19:00 | NUR ---
RECEIVED RPORT FROM DAY SHIFT NURSE. PT RESTING IN BED WITH FAMILY AT BEDSIDE. NO NEEDS AT THIS TIME. CALL YI IN REACH. WILL CONTINUE TO MONITOR
[2018-07-17 19:28] VITALS: BP 133/67
--- NOTE | 2018-07-17 21:45 | NUR ---
CRITICAL GLUCOSE RESULTS FROM THE LAB 633 AT THIS TIME. MEDICATED PER ORDER FOR BLOOD SUGAR AND MONICA NOTIFIED.
--- NOTE | 2018-07-18 | NUR ---
PT APPEARS TO BE ASLEPP AT THIS TIME. NO S/S OF DISTERESS NOTED. CALLBELL IN REACH. WILL CONTINUE TO MONITOR.
[2018-07-18 00:19] VITALS: BP 106/58
--- NOTE | 2018-07-18 04:00 | NUR ---
UP TO RESTROOM AT THIS TIME. STEADY GAIT. NO NEEDS ATH THIS TIME. CALL YI IN REACH. WILL CONTINUE TO MONITOR.,
[2018-07-18 04:18] VITALS: BP 139/80
--- NOTE | 2018-07-18 07:12 | NUR ---
REPORT RECEIVED FROM DONALD AYALA; PT APPEARS TO BE SLEEPING WITH EYES CLOSED; RESP EVEN AND UNLABORED ON ROOM AIR; CALL YI IN REACH.
--- NOTE | 2018-07-18 07:31 | NUR ---
ASSESSMENT COMPLETED; PT LAYING IN BED AWAKE; A/O X3; TELE IN PLACE; SM SKIN TEAR NOTED TO L MIDDLE FINGER, BANDAGE APPLIED; NICOTINE PATCH APPLIED TO LL SHOULDER; TELE IN PLACE; #20 RAC FLUSHED WITHOUT DIFFICULTY, SITE APPEARS HEALHTY; AM MEDS ADMINISTER; PT VOICE NO CONCERS; CALL YI IN REACH; SAFETY PRECAUTION REINFORCE;
[2018-07-18 11:10] VITALS: BP 139/81
--- NOTE | 2018-07-18 12:24 | NUR ---
DR ANDERSON & SANTOS ALCANTARA AT BEDSIDE TO DISCUSS POC
--- NOTE | 2018-07-18 13:35 | NUR ---
PT RETURN BACK TO FLOOR VIA W/C IN STABLE CONDITION; ASSISTED BACK TO BED;
[2018-07-18 15:05] VITALS: BP 105/63
--- NOTE | 2018-07-18 18:22 | NUR ---
PT SITTING ON COMMODE, RESP EVEN AND UNLABORED; IVF INFUSING WITHOUT DIFFICULTY; CALL YI IN REACH
[2018-07-18 18:55] VITALS: BP 116/69
--- NOTE | 2018-07-18 19:15 | NUR ---
PT RESTING QUIETLY IN BED WATCHING TV WITH AT BEDSIDE. NO NEEDS AT THIS TIME. CALL YI IN REACH. WILL CONTINUE TO MONITOR.
--- NOTE | 2018-07-18 21:15 | NUR ---
PT RESTING IN BED WITH EYES CLOSED. ACCUCHECK 309. MEDICATED PER ORDER. ASSESMENT COMPLETED AT THIS TIME(SEE INTERVENTIONS) LUNG SOUNDS CLEAR, HEART SOUNDS NORMAL, BOWEL SOUNDS ACTIVE. NO SWELLING OR EDEMA NOTED. PT C/O TOE PAIN. DRESSING CHANGED AT THIS TIME ADAPTIC AND KERLEX APPLIED. NO COMPLAINTS AT THIS. REQUESTING COFFEE. CALL YI IN REACH. WILL CONTINUE TO MONITOR.
[2018-07-19] VITALS: BP 114/65
--- NOTE | 2018-07-19 02:00 | NUR ---
PT RESTING IN BED. NO S/S OF DISTRESS. CALL YI IN REACH. WILL CONTINUE TO MONITOR.
[2018-07-19 03:50] VITALS: BP 113/69
--- NOTE | 2018-07-19 04:00 | NUR ---
PT UP TO RESTROOM AT THIS TIME. NO NEEDS AT THIS TIME. CALL YI IN REACH. WILL CONTINUE TO MONITOR.
[2018-07-19 05:30] LABS: HEMATOCRIT 37.6 % (39.0-50.0); HEMOGLOBIN 12.1 g/dl (14.0-18.0); IMMATURE GRANULOCYTES 1.4 % (0.0-5.0); MEAN CELL VOLUME 86.6 fL CALC (80.0-100.0); MEAN CORPUSCULAR HGB 27.9 pG CALC (26.0-32.0); MEAN CORPUSCULAR HGB CONC 32.2 g/L CALC (32.0-36.0); NEUT# 3.93 thou/uL (1.82-7.42); RED BLOOD COUNT 4.34 mill/uL (4.70-6.10); RED CELL DISTRI WIDTH 14.3 % (11.5-15.5)
[2018-07-19 05:52] LABS: ALBUMIN 3.3 g/dL (3.2-5.0); ALKALINE PHOSPHATASE 74 u/l (38-126); AMYLASE 38 u/l (30-110); BILIRUBIN, TOTAL 0.2 mg/dL (0.0-1.4); BUN 15 mg/dL (8-23); BUN/CREATININE RATIO 28 (12-20 (CALC)); CARBON DIOXIDE 33 mmol/l (22-30); CHLORIDE 95 mmol/l (95-108); CREATININE 0.5 mg/dL (0.7-1.3); GFR > 60 ML/MIN (>=60 (CALC)); GFR FOR AFR.AMER. > 60 ML/MIN (>=60 (CALC)); LIPASE 31 u/l (23-300); MAGNESIUM 1.9 mg/dL (1.6-2.3); SODIUM 137 mmol/l (137-146); TOTAL PROTEIN 5.6 g/dL (6.3-8.2)
[2018-07-19 05:54] LABS: ANION GAP 13 (6-22 (CALC)); POTASSIUM 3.9 mmol/l (3.5-5.1); SGOT/AST 68 u/l (19-48)
--- NOTE | 2018-07-19 07:00 | NUR ---
REPORT RECEIVED FROM DONALD PELLETIER; PT LAYING IN BED AWAKE; RESP EVEN AND UNLABRED; VANO INFUSING; CALL YI IN REACH.
[2018-07-19 08:05] VITALS: BP 91/60
--- NOTE | 2018-07-19 08:15 | NUR ---
PT SITTING UP EDGE OF BED EATING BREAKFAST; RESP EVEN AND UNLABORED; ON ROOM AIR; TELE IN PLACE, ST 106 ON MONITOR; VITALS OBTAINED TEMP 96.8; RESP 20; PULSE 118; BP 91/60, O2 97; C/O OF PAIN IN R BIG TOE 6/10 PAIN SCALE; REFUSE PAIN MEDS; VANO FININSHED INFUSING, SITE APPEARS HEALTHY; MEDICATED PER EMAR; CALL YI IN REACH; PT INSTRUCTED TO CALL FOR ASSISTANCE; VERBALIZE UNDERSTANDING
--- NOTE | 2018-07-19 10:01 | NUR ---
TJ IN RADIOLOGY CALLED @ 3395 TO INQUIRE ABOUT BARIUM PROCEDURE AND STATED PT NEEDS TO HAVE A SPEECH THERAPIST IN ORDER TO DO PROCEDURE. SPOKE TO NICOLE THE SPEECH THERAPIST WHO INFORMED ME SHE COMPLETED SPEECH EVALUATION ON 07/17, HAS A BUSY OUT PATIENT SCHEDULE TODAY AND IS UNABLE TO BE HERE FOR THE PROCEDURE. ADVISED TO CALL VIV @ 771 TO SOLVE SITUATION IN HAVING PROCEDURE DONE.
--- NOTE | 2018-07-19 11:18 | NUR ---
ENTERED ROOM PT FOUND SLEEPING ON L SIDE; WOKE PT UP FOR NOVOLOG COVERAGE; STATES HE'S SLEEPY; C/O NO PAIN; RESP EVEN AND UNLABORED ON ROOM AIR; NO S/S OF DISTRESS NOTED; CALL YI IN REACH.
[2018-07-19 12:30] VITALS: BP 106/68
[2018-07-19] MEDS ORDERED: KEFLEX500 MG PO (13:27)
[2018-07-19] MEDS ORDERED: MIRTAZAPINE15 MG PO (13:29)
[2018-07-19] MEDS ORDERED: PANTOPRAZOLE SO40 M1 PO (13:30)
[2018-07-19] MEDS ORDERED: ALPRAZOLAM0.5 M2 PO (13:30)
[2018-07-19] MEDS ORDERED: LEVEMIR100 UNIT/M SC (13:30)
[2018-07-19] MEDS ORDERED: MUPIROCIN2 % TOP (13:32)
[2018-07-19] MEDS ORDERED: COMBIVENT RESPIMAT IN (13:35)
--- NOTE | 2018-07-19 15:46 | NUR ---
PT'S SON CALL VERY UPSET THAT PT BEING D/C; SON DOES NOT HAVE PASS CODE UNABLE TO GIVE HIM INFO; STATED HE WILL TAKE HIS DAD TO PC IF HE HAS TO AND IF HIS DAD DROPS HE WILL FILE A COMPLAIN;
--- NOTE | 2018-07-19 16:10 | NUR ---
DC INSTRUCTIONS GIVEN TO PT, PT VERBALIZE UNDERSTANDING; IV REMOVE CATH TIP INTACT; TELE REMOVE;
--- NOTE | 2018-07-19 16:31 | NUR ---
Discharge instructions given. Patient verbalizes understanding of same. Discharged in stable condition via Wheelchair to Home with family. All belongings sent with pt.
== END 2018-07-19 16:30 | disposition home health service (06) | DRG 191 ==
LOC: ED 11:54 → ED-I 13:08 → ED 13:08 → MS2 13:34
PROVIDERS: Emergency Medicine; Nurse Practitioner Family; ADMIT Internal Medicine Nephrology; ATTEND Internal Medicine Nephrology
PROC: 0HBMXZZ Excision of Right Foot Skin, External Approach (ICD-10-PCS; principal; 2018-07-15)
DX: J44.1 Chronic obstructive pulmonary disease with (acute) exacerbation (principal); E87.1 Hypo-osmolality and hyponatremia; E11.65 Type 2 diabetes mellitus with hyperglycemia; J44.0 Chronic obstructive pulmonary disease with (acute) lower respiratory infection; E11.51 Type 2 diabetes mellitus with diabetic peripheral angiopathy without gangrene; M94.0 Chondrocostal junction syndrome [Tietze]; I10 Essential (primary) hypertension; J20.9 Acute bronchitis, unspecified; F41.9 Anxiety disorder, unspecified; E11.621 Type 2 diabetes mellitus with foot ulcer; L97.519 Non-pressure chronic ulcer of other part of right foot with unspecified severity; L03.031 Cellulitis of right toe; K21.9 Gastro-esophageal reflux disease without esophagitis; F17.210 Nicotine dependence, cigarettes, uncomplicated; R13.12 Dysphagia, oropharyngeal phase; D63.8 Anemia in other chronic diseases classified elsewhere; Z91.14 Patient's other noncompliance with medication regimen; Z22.322 Carrier or suspected carrier of Methicillin resistant Staphylococcus aureus; Z79.4 Long term (current) use of insulin
CPT/HCPCS: G0378; J1650

== ENCOUNTER 2019-05-20 13:58 | Emergency (ER) | payer MEDICARE, MEDICAID ==
[~2019-05-20] VITALS: Ht 147.3 cm; Wt 54.5 kg
[~2019-05-20 13:58] MED LIST changes: +ALPRAZOLAM0.5 M2 PO; +COMBIVENT RESPIMAT IN; +KEFLEX500 MG PO; +MIRTAZAPINE15 MG PO; +MUPIROCIN2 % TOP; +PANTOPRAZOLE SO40 M1 PO
[2019-05-20 14:39] LABS: HEMATOCRIT 38.4 % (39.0-50.0); HEMOGLOBIN 12.5 g/dl (14.0-18.0); IMMATURE GRANULOCYTES 0.4 % (0.0-5.0); MEAN CELL VOLUME 83.8 fL CALC (80.0-100.0); MEAN CORPUSCULAR HGB 27.3 pG CALC (26.0-32.0); MEAN CORPUSCULAR HGB CONC 32.6 g/L CALC (32.0-36.0); NEUT# 2.77 thou/uL (1.82-7.42); RED BLOOD COUNT 4.58 mill/uL (4.70-6.10); RED CELL DISTRI WIDTH 13.5 % (11.5-15.5)
[2019-05-20 15:03] LABS: ALBUMIN 3.4 g/dL (3.2-5.0); ALKALINE PHOSPHATASE 82 u/l (38-126); BUN 14 mg/dL (8-23); BUN/CREATININE RATIO 32 (12-20 (CALC)); CARBON DIOXIDE 27 mmol/l (22-30); CHLORIDE 96 mmol/l (95-108); CREATININE 0.4 mg/dL (0.7-1.3); GFR > 60 ML/MIN (>=60 (CALC)); GFR FOR AFR.AMER. > 60 ML/MIN (>=60 (CALC)); LIPASE 68 u/l (23-300); SODIUM 131 mmol/l (137-146); TOTAL PROTEIN 5.9 g/dL (6.3-8.2)
[2019-05-20 15:05] LABS: ANION GAP 13 (6-22 (CALC)); BILIRUBIN, TOTAL 0.5 mg/dL (0.0-1.4); POTASSIUM 4.8 mmol/l (3.5-5.1); SGOT/AST 12 u/l (19-48)
[2019-05-20 18:04] VITALS: BP 105/88
== END 2019-05-20 18:08 | disposition home or self-care (01) ==
LOC: ED 13:58
PROVIDERS: Family Medicine
DX: E11.65 Type 2 diabetes mellitus with hyperglycemia (principal); Z79.4 Long term (current) use of insulin; F17.200 Nicotine dependence, unspecified, uncomplicated; R94.31 Abnormal electrocardiogram [ECG] [EKG]

== ENCOUNTER 2019-05-25 12:41 | Emergency (ER) | payer MEDICARE, MEDICAID ==
[~2019-05-25] VITALS: Ht 147.3 cm; Wt 46.0 kg
[2019-05-25] MEDS ORDERED: NOVOLOG FLEXPEN SC (14:26)
[2019-05-25] MEDS ORDERED: LEVEMIR FL100 UNIT/M SC (14:33)
[2019-05-25] MEDS ORDERED: IMODIUM2 MG PO (14:34)
[2019-05-25 14:52] LABS: HEMATOCRIT 37.8 % (39.0-50.0); HEMOGLOBIN 12.5 g/dl (14.0-18.0); IMMATURE GRANULOCYTES 0.7 % (0.0-5.0); MEAN CELL VOLUME 83.3 fL CALC (80.0-100.0); MEAN CORPUSCULAR HGB 27.5 pG CALC (26.0-32.0); MEAN CORPUSCULAR HGB CONC 33.1 g/L CALC (32.0-36.0); NEUT# 2.94 thou/uL (1.82-7.42); RED BLOOD COUNT 4.54 mill/uL (4.70-6.10); RED CELL DISTRI WIDTH 13.7 % (11.5-15.5)
[2019-05-25 15:11] LABS: ALBUMIN 3.6 g/dL (3.2-5.0); ALKALINE PHOSPHATASE 75 u/l (38-126); AMYLASE 48 u/l (30-110); BILIRUBIN, TOTAL 0.4 mg/dL (0.0-1.4); BUN 20 mg/dL (8-23); BUN/CREATININE RATIO 32 (12-20 (CALC)); CARBON DIOXIDE 27 mmol/l (22-30); CHLORIDE 99 mmol/l (95-108); CREATININE 0.6 mg/dL (0.7-1.3); GFR > 60 ML/MIN (>=60 (CALC)); GFR FOR AFR.AMER. > 60 ML/MIN (>=60 (CALC)); SGOT/AST 14 u/l (19-48); SODIUM 135 mmol/l (137-146); TOTAL PROTEIN 6.4 g/dL (6.3-8.2)
[2019-05-25 15:13] LABS: ANION GAP 13 (6-22 (CALC)); POTASSIUM 4.2 mmol/l (3.5-5.1)
[2019-05-25 16:43] LABS: URINE BILIRUBIN - DIPSTICK NEGATIVE (NEGATIVE); URINE BLOOD DIPSTICK TRACE-INTACT (NEGATIVE); URINE COLOR YELLOW; URINE GLUCOSE - DIPSTICK >=1000 mg/dL (NEGATIVE); URINE KETONE NEGATIVE (NEGATIVE); URINE NITRITE - DIPSTICK NEGATIVE (Negative); URINE PROTEIN - DIPSTICK NEGATIVE (NEG-TRACE); URINE UROBILINOGEN - DIPSTICK 0.2 E.U./dL (0.2)
[2019-05-25 16:47] LABS: URINE LEUK ESTERASE SMALL (NEGATIVE)
[2019-05-25 17:03] LABS: URINE SQUAMOUS EPITHELIAL CELL FEW EPI/hpf (0-FEW); URINE YEAST MODERATE hpf
[2019-05-25 17:19] VITALS: BP 109/65
== END 2019-05-25 17:19 | disposition home or self-care (01) ==
LOC: ED 12:41
DX: E11.65 Type 2 diabetes mellitus with hyperglycemia (principal); Z79.4 Long term (current) use of insulin; E86.0 Dehydration

== ENCOUNTER 2019-06-06 10:52 | Inpatient (IN) | payer MEDICARE, MEDICAID ==
[2019-06-06] VITALS (7 sets, daily range): BP systolic 94–132; BP diastolic 46–65
[~2019-06-06] VITALS: Ht 147.3 cm; Wt 46.5 kg
[~2019-06-06 10:52] MED LIST changes: +IMODIUM2 MG PO; +LEVEMIR FL100 UNIT/M SC; +NOVOLOG FLEXPEN SC
[2019-06-06 11:36] LABS: HEMATOCRIT 34.8 % (39.0-50.0); HEMOGLOBIN 11.1 g/dl (14.0-18.0); IMMATURE GRANULOCYTES 0.5 % (0.0-5.0); MEAN CELL VOLUME 83.9 fL CALC (80.0-100.0); MEAN CORPUSCULAR HGB 26.7 pG CALC (26.0-32.0); MEAN CORPUSCULAR HGB CONC 31.9 g/L CALC (32.0-36.0); NEUT# 8.32 thou/uL (1.82-7.42); RED BLOOD COUNT 4.15 mill/uL (4.70-6.10); RED CELL DISTRI WIDTH 14.1 % (11.5-15.5)
[2019-06-06 12:02] LABS: ALBUMIN 3.2 g/dL (3.2-5.0); ANION GAP 18 (6-22 (CALC)); BUN 15 mg/dL (8-23); BUN/CREATININE RATIO 30 (12-20 (CALC)); CARBON DIOXIDE 24 mmol/l (22-30); CHLORIDE 94 mmol/l (95-108); CREATININE 0.5 mg/dL (0.7-1.3); GFR > 60 ML/MIN (>=60 (CALC)); GFR FOR AFR.AMER. > 60 ML/MIN (>=60 (CALC)); POTASSIUM 4.8 mmol/l (3.5-5.1); SODIUM 132 mmol/l (137-146); TOTAL PROTEIN 6.4 g/dL (6.3-8.2)
[2019-06-06 12:14] LABS: ALKALINE PHOSPHATASE 214 u/l (38-126); BILIRUBIN, TOTAL 1.1 mg/dL (0.0-1.4); SGOT/AST 47 u/l (19-48)
[2019-06-06] MEDS ORDERED: TRESIBA100 UNIT/M SC (13:03)
[2019-06-06] MEDS ORDERED: ACTOS15 MG PO (13:03)
[2019-06-06] MEDS ORDERED: VITAMIN D5000 UNIT PO (13:04)
[2019-06-07] VITALS (18 sets, daily range): BP systolic 98–179; BP diastolic 52–97
[2019-06-07 05:09] LABS: HEMATOCRIT 33.3 % (39.0-50.0); HEMOGLOBIN 10.6 g/dl (14.0-18.0); IMMATURE GRANULOCYTES 1.5 % (0.0-5.0); MEAN CELL VOLUME 83.3 fL CALC (80.0-100.0); MEAN CORPUSCULAR HGB 26.5 pG CALC (26.0-32.0); MEAN CORPUSCULAR HGB CONC 31.8 g/L CALC (32.0-36.0); NEUT# 8.13 thou/uL (1.82-7.42); RED CELL DISTRI WIDTH 13.7 % (11.5-15.5)
[2019-06-07 05:31] LABS: BUN 16 mg/dL (8-23); BUN/CREATININE RATIO 26 (12-20 (CALC)); CARBON DIOXIDE 26 mmol/l (22-30); CHLORIDE 101 mmol/l (95-108); CREATININE 0.6 mg/dL (0.7-1.3); GFR > 60 ML/MIN (>=60 (CALC)); GFR FOR AFR.AMER. > 60 ML/MIN (>=60 (CALC)); SODIUM 136 mmol/l (137-146)
[2019-06-07 05:45] LABS: ANION GAP 13 (6-22 (CALC)); POTASSIUM 3.6 mmol/l (3.5-5.1)
[2019-06-08] VITALS (23 sets, daily range): BP systolic 72–168; BP diastolic 46–91
[2019-06-08 05:15] LABS: HEMATOCRIT 34.2 % (39.0-50.0); HEMOGLOBIN 10.8 g/dl (14.0-18.0); IMMATURE GRANULOCYTES 0.8 % (0.0-5.0); MEAN CELL VOLUME 83.8 fL CALC (80.0-100.0); MEAN CORPUSCULAR HGB 26.5 pG CALC (26.0-32.0); MEAN CORPUSCULAR HGB CONC 31.6 g/L CALC (32.0-36.0); NEUT# 9.31 thou/uL (1.82-7.42); RED BLOOD COUNT 4.08 mill/uL (4.70-6.10); RED CELL DISTRI WIDTH 14.1 % (11.5-15.5)
[2019-06-08 05:34] LABS: ANION GAP 11 (6-22 (CALC)); BUN 16 mg/dL (8-23); BUN/CREATININE RATIO 34 (12-20 (CALC)); CARBON DIOXIDE 30 mmol/l (22-30); CHLORIDE 100 mmol/l (95-108); CREATININE 0.5 mg/dL (0.7-1.3); GFR > 60 ML/MIN (>=60 (CALC)); GFR FOR AFR.AMER. > 60 ML/MIN (>=60 (CALC)); SODIUM 136 mmol/l (137-146)
[2019-06-09] VITALS (29 sets, daily range): BP systolic 99–144; BP diastolic 60–85
[2019-06-09 06:06] LABS: HEMATOCRIT 31.6 % (39.0-50.0); IMMATURE GRANULOCYTES 0.2 % (0.0-5.0); MEAN CELL VOLUME 85.4 fL CALC (80.0-100.0); MEAN CORPUSCULAR HGB CONC 31.6 g/L CALC (32.0-36.0); NEUT# 7.51 thou/uL (1.82-7.42); RED BLOOD COUNT 3.7 mill/uL (4.70-6.10); RED CELL DISTRI WIDTH 14.4 % (11.5-15.5)
[2019-06-09 06:21] LABS: ALKALINE PHOSPHATASE 171 u/l (38-126); ANION GAP 13 (6-22 (CALC)); BUN 21 mg/dL (8-23); BUN/CREATININE RATIO 47 (12-20 (CALC)); CARBON DIOXIDE 31 mmol/l (22-30); CHLORIDE 99 mmol/l (95-108); CREATININE 0.5 mg/dL (0.7-1.3); GFR > 60 ML/MIN (>=60 (CALC)); GFR FOR AFR.AMER. > 60 ML/MIN (>=60 (CALC)); POTASSIUM 3.9 mmol/l (3.5-5.1); SGOT/AST 25 u/l (19-48); SODIUM 139 mmol/l (137-146)
[2019-06-09 06:28] LABS: ALBUMIN 2.4 g/dL (3.2-5.0); BILIRUBIN, TOTAL 0.6 mg/dL (0.0-1.4)
[2019-06-10] VITALS (27 sets, daily range): BP systolic 115–162; BP diastolic 63–94
[2019-06-10 05:06] LABS: HEMATOCRIT 32.7 % (39.0-50.0); HEMOGLOBIN 10.3 g/dl (14.0-18.0); MEAN CELL VOLUME 85.2 fL CALC (80.0-100.0); MEAN CORPUSCULAR HGB 26.8 pG CALC (26.0-32.0); MEAN CORPUSCULAR HGB CONC 31.5 g/L CALC (32.0-36.0); RED BLOOD COUNT 3.84 mill/uL (4.70-6.10); RED CELL DISTRI WIDTH 14.4 % (11.5-15.5)
[2019-06-10 05:45] LABS: ANION GAP 12 (6-22 (CALC)); BUN 25 mg/dL (8-23); BUN/CREATININE RATIO 57 (12-20 (CALC)); CARBON DIOXIDE 29 mmol/l (22-30); CHLORIDE 104 mmol/l (95-108); CREATININE 0.4 mg/dL (0.7-1.3); GFR > 60 ML/MIN (>=60 (CALC)); GFR FOR AFR.AMER. > 60 ML/MIN (>=60 (CALC)); POTASSIUM 3.6 mmol/l (3.5-5.1); SODIUM 141 mmol/l (137-146)
[2019-06-11] VITALS (16 sets, daily range): BP systolic 99–167; BP diastolic 56–87
[2019-06-11 05:18] LABS: HEMATOCRIT 32.7 % (39.0-50.0); HEMOGLOBIN 10.2 g/dl (14.0-18.0); MEAN CELL VOLUME 84.7 fL CALC (80.0-100.0); MEAN CORPUSCULAR HGB 26.4 pG CALC (26.0-32.0); MEAN CORPUSCULAR HGB CONC 31.2 g/L CALC (32.0-36.0); RED BLOOD COUNT 3.86 mill/uL (4.70-6.10); RED CELL DISTRI WIDTH 14.5 % (11.5-15.5)
[2019-06-11 05:32] LABS: ANION GAP 7 (6-22 (CALC)); BUN 21 mg/dL (8-23); BUN/CREATININE RATIO 53 (12-20 (CALC)); CARBON DIOXIDE 31 mmol/l (22-30); CHLORIDE 103 mmol/l (95-108); CREATININE 0.4 mg/dL (0.7-1.3); GFR > 60 ML/MIN (>=60 (CALC)); GFR FOR AFR.AMER. > 60 ML/MIN (>=60 (CALC)); POTASSIUM 3.4 mmol/l (3.5-5.1); SODIUM 138 mmol/l (137-146)
[2019-06-12] VITALS (19 sets, daily range): BP systolic 92–179; BP diastolic 69–92
[2019-06-12 05:19] LABS: HEMATOCRIT 34.4 % (39.0-50.0); HEMOGLOBIN 10.7 g/dl (14.0-18.0); IMMATURE GRANULOCYTES 1.7 % (0.0-5.0); MEAN CELL VOLUME 84.3 fL CALC (80.0-100.0); MEAN CORPUSCULAR HGB 26.2 pG CALC (26.0-32.0); MEAN CORPUSCULAR HGB CONC 31.1 g/L CALC (32.0-36.0); NEUT# 5.6 thou/uL (1.82-7.42); RED BLOOD COUNT 4.08 mill/uL (4.70-6.10); RED CELL DISTRI WIDTH 14.2 % (11.5-15.5)
[2019-06-12 05:47] LABS: ALBUMIN 2.4 g/dL (3.2-5.0); ALKALINE PHOSPHATASE 123 u/l (38-126); BILIRUBIN, TOTAL 0.4 mg/dL (0.0-1.4); BUN 16 mg/dL (8-23); BUN/CREATININE RATIO 45 (12-20 (CALC)); CHLORIDE 96 mmol/l (95-108); CREATININE 0.4 mg/dL (0.7-1.3); GFR > 60 ML/MIN (>=60 (CALC)); GFR FOR AFR.AMER. > 60 ML/MIN (>=60 (CALC)); POTASSIUM 3.4 mmol/l (3.5-5.1); SGOT/AST 19 u/l (19-48); SODIUM 137 mmol/l (137-146)
[2019-06-12 05:50] LABS: ANION GAP 6 (6-22 (CALC)); CARBON DIOXIDE 38 mmol/l (22-30)
[2019-06-13] VITALS (11 sets, daily range): BP systolic 106–168; BP diastolic 59–80
[2019-06-13 05:28] LABS: HEMATOCRIT 37.7 % (39.0-50.0); HEMOGLOBIN 11.7 g/dl (14.0-18.0); IMMATURE GRANULOCYTES 1.5 % (0.0-5.0); MEAN CELL VOLUME 84.3 fL CALC (80.0-100.0); MEAN CORPUSCULAR HGB 26.2 pG CALC (26.0-32.0); NEUT# 5.55 thou/uL (1.82-7.42); RED BLOOD COUNT 4.47 mill/uL (4.70-6.10); RED CELL DISTRI WIDTH 13.8 % (11.5-15.5)
[2019-06-13 05:40] LABS: BUN 18 mg/dL (8-23); BUN/CREATININE RATIO 48 (12-20 (CALC)); CHLORIDE 90 mmol/l (95-108); CREATININE 0.4 mg/dL (0.7-1.3); GFR > 60 ML/MIN (>=60 (CALC)); GFR FOR AFR.AMER. > 60 ML/MIN (>=60 (CALC)); POTASSIUM 3.3 mmol/l (3.5-5.1); SODIUM 137 mmol/l (137-146)
[2019-06-13 05:50] LABS: ANION GAP 8 (6-22 (CALC)); CARBON DIOXIDE 42 mmol/l (22-30)
[2019-06-14] VITALS (12 sets, daily range): BP systolic 106–177; BP diastolic 61–90
[2019-06-14 05:47] LABS: BUN 21 mg/dL (8-23); BUN/CREATININE RATIO 46 (12-20 (CALC)); CHLORIDE 90 mmol/l (95-108); CREATININE 0.5 mg/dL (0.7-1.3); GFR > 60 ML/MIN (>=60 (CALC)); GFR FOR AFR.AMER. > 60 ML/MIN (>=60 (CALC)); SODIUM 134 mmol/l (137-146)
[2019-06-14 05:56] LABS: CARBON DIOXIDE 39 mmol/l (22-30)
[2019-06-14 05:59] LABS: POTASSIUM 4.1 mmol/l (3.5-5.1)
[2019-06-14 06:00] LABS: ANION GAP 9 (6-22 (CALC))
[2019-06-15] VITALS (9 sets, daily range): BP systolic 124–164; BP diastolic 66–84
[2019-06-15 05:55] LABS: HEMATOCRIT 36.8 % (39.0-50.0); HEMOGLOBIN 11.4 g/dl (14.0-18.0); MEAN CELL VOLUME 85.2 fL CALC (80.0-100.0); MEAN CORPUSCULAR HGB 26.4 pG CALC (26.0-32.0); NEUT# 5.8 thou/uL (1.82-7.42); RED BLOOD COUNT 4.32 mill/uL (4.70-6.10); RED CELL DISTRI WIDTH 13.6 % (11.5-15.5)
[2019-06-15 06:09] LABS: BUN 18 mg/dL (8-23); BUN/CREATININE RATIO 38 (12-20 (CALC)); CHLORIDE 89 mmol/l (95-108); CREATININE 0.5 mg/dL (0.7-1.3); GFR > 60 ML/MIN (>=60 (CALC)); GFR FOR AFR.AMER. > 60 ML/MIN (>=60 (CALC)); POTASSIUM 3.5 mmol/l (3.5-5.1); SODIUM 136 mmol/l (137-146)
[2019-06-15 06:19] LABS: ANION GAP 8 (6-22 (CALC))
[2019-06-15 06:29] LABS: CARBON DIOXIDE 43 mmol/l (22-30)
[2019-06-15] MEDS ORDERED: LEVEMIR100 UNIT/M SC (10:20)
[2019-06-15] MEDS ORDERED: PREDNISONE10 MG PO (10:20)
[2019-06-15] MEDS ORDERED: AMOX/K CLAV875 M1 PO (10:20)
[2019-06-15] MEDS ORDERED: IPRATROPIU0.5 MG/3 M IN (10:26)
== END 2019-06-15 15:37 | DRG 871 ==
LOC: ED 10:52 → ED-I 12:06 → ED 13:20 → ICU 13:21
PROVIDERS: Family Medicine; Internal Medicine; Nurse Practitioner Family; ADMIT Internal Medicine; ATTEND Internal Medicine
PROC: 5A09457 Assistance with Respiratory Ventilation, 24-96 Consecutive Hours, Continuous Positive Airway Pressure (ICD-10-PCS; principal; 2019-06-06)
PROC: 0BH17EZ Insertion of Endotracheal Airway into Trachea, Via Natural or Artificial Opening (ICD-10-PCS; 2019-06-08)
PROC: 5A1945Z Respiratory Ventilation, 24-96 Consecutive Hours (ICD-10-PCS; 2019-06-08)
PROC: 02HV33Z Insertion of Infusion Device into Superior Vena Cava, Percutaneous Approach (ICD-10-PCS; 2019-06-08)
PROC: 0T9B70Z Drainage of Bladder with Drainage Device, Via Natural or Artificial Opening (ICD-10-PCS; 2019-06-11)
DX: A41.9 Sepsis, unspecified organism (principal); J10.00 Influenza due to other identified influenza virus with unspecified type of pneumonia; J96.01 Acute respiratory failure with hypoxia; E43 Unspecified severe protein-calorie malnutrition; R65.20 Severe sepsis without septic shock; I10 Essential (primary) hypertension; E11.65 Type 2 diabetes mellitus with hyperglycemia; M19.90 Unspecified osteoarthritis, unspecified site; F17.210 Nicotine dependence, cigarettes, uncomplicated; R19.7 Diarrhea, unspecified; Z79.4 Long term (current) use of insulin; Z68.20 Body mass index [BMI] 20.0-20.9, adult; Z91.19 Patient's noncompliance with other medical treatment and regimen
CPT/HCPCS: J0131; J1650; J3370; S0164

== ENCOUNTER 2019-12-01 16:40 | Emergency (ER) | payer MEDICARE, MEDICAID ==
[~2019-12-01] VITALS: Ht 147.3 cm; Wt 38.0 kg
[~2019-12-01 16:40] MED LIST changes: +ACTOS15 MG PO; +IPRATROPIU0.5 MG/3 M IN; +PREDNISONE10 MG PO; +TRESIBA100 UNIT/M SC; +VITAMIN D5000 UNIT PO
[2019-12-01] MEDS ORDERED: CREON24000 UNT PO (17:58)
[2019-12-01] MEDS ORDERED: ULTRAM50 M1 PO (18:20)
[2019-12-01 18:25] VITALS: BP 144/78
== END 2019-12-01 18:25 | disposition home or self-care (01) ==
LOC: ED 16:40
DX: S49.091A Other physeal fracture of upper end of humerus, right arm, initial encounter for closed fracture (principal); E11.9 Type 2 diabetes mellitus without complications; G40.909 Epilepsy, unspecified, not intractable, without status epilepticus; F17.200 Nicotine dependence, unspecified, uncomplicated; W19.XXXA Unspecified fall, initial encounter; Y92.009 Unspecified place in unspecified non-institutional (private) residence as the place of occurrence of the external cause; Z79.4 Long term (current) use of insulin

== ENCOUNTER 2020-05-25 09:24 | Emergency (ER) | payer MEDICARE, MEDICAID ==
[~2020-05-25] VITALS: Ht 147.3 cm; Wt 37.0 kg
[~2020-05-25 09:24] MED LIST changes: +CREON24000 UNT PO
[2020-05-25 11:20] LABS: HEMATOCRIT 37.9 % (39.0-50.0); IMMATURE GRANULOCYTES 0.1 % (0.0-5.0); MEAN CELL VOLUME 84.4 fL CALC (80.0-100.0); MEAN CORPUSCULAR HGB 26.7 pG CALC (26.0-32.0); MEAN CORPUSCULAR HGB CONC 31.7 g/dL CAL (32.0-36.0); NEUT# 3.6 thou/uL (1.82-7.42); RED BLOOD COUNT 4.49 mill/uL (4.70-6.10); RED CELL DISTRI WIDTH 14.6 % (11.5-15.5)
[2020-05-25 11:26] LABS: BUN 8 mg/dL (8-23); BUN/CREATININE RATIO 10 (12-20 (CALC)); CREATININE 0.8 mg/dL (0.7-1.3); GFR > 60 ML/MIN (>=60 (CALC)); GFR FOR AFR.AMER. > 60 ML/MIN (>=60 (CALC)); LIPASE 28 u/l (23-300); SGOT/AST 28 u/l (19-48); SODIUM 135 mmol/l (137-146); TOTAL PROTEIN 5.9 g/dL (6.3-8.2)
[2020-05-25 11:28] LABS: CHLORIDE 103 mmol/l (95-108); POTASSIUM 4.9 mmol/l (3.5-5.1)
[2020-05-25 11:29] LABS: ALBUMIN 3.2 g/dL (3.2-5.0); ALKALINE PHOSPHATASE 231 u/l (38-126); ANION GAP 11 (6-22 (CALC)); BILIRUBIN, TOTAL 0.6 mg/dL (0.0-1.4); CARBON DIOXIDE 26 mmol/l (22-30)
[2020-05-25 11:38] LABS: ACT PARTIAL THROMBO TIME 25.4 SECONDS (20.0-32.5); INTERNATIONAL NORMALIZED RATIO 1.2 RATIO (0.7-1.3); PROTHROMBIN TIME 12.1 SECONDS (9.0-12.5)
[2020-05-25 13:55] VITALS: BP 129/76
== END 2020-05-25 14:04 | disposition home or self-care (01) ==
LOC: ED 09:24
DX: E11.65 Type 2 diabetes mellitus with hyperglycemia (principal); I95.9 Hypotension, unspecified; S22.49XD Multiple fractures of ribs, unspecified side, subsequent encounter for fracture with routine healing; G40.909 Epilepsy, unspecified, not intractable, without status epilepticus; F17.200 Nicotine dependence, unspecified, uncomplicated; W19.XXXD Unspecified fall, subsequent encounter; Z79.4 Long term (current) use of insulin
CPT/HCPCS: Q9967

== ENCOUNTER 2020-07-09 17:25 | Emergency (ER) | payer MEDICARE ==
[~2020-07-09] VITALS: Ht 147.3 cm; Wt 35.0 kg
[2020-07-09 19:13] LABS: HEMATOCRIT 37.7 % (39.0-50.0); HEMOGLOBIN 11.8 g/dl (14.0-18.0); MEAN CELL VOLUME 85.7 fL CALC (80.0-100.0); MEAN CORPUSCULAR HGB 26.8 pG CALC (26.0-32.0); MEAN CORPUSCULAR HGB CONC 31.3 g/dL CAL (32.0-36.0); NEUT# 2.63 thou/uL (1.82-7.42); RED BLOOD COUNT 4.4 mill/uL (4.70-6.10); RED CELL DISTRI WIDTH 14.1 % (11.5-15.5)
[2020-07-09 19:34] LABS: ALBUMIN 3.6 g/dL (3.2-5.0); ALKALINE PHOSPHATASE 125 u/l (38-126); ANION GAP 8 (6-22 (CALC)); BILIRUBIN, TOTAL 0.6 mg/dL (0.0-1.4); BUN 13 mg/dL (8-23); BUN/CREATININE RATIO 18 (12-20 (CALC)); CHLORIDE 94 mmol/l (95-108); CREATININE 0.7 mg/dL (0.7-1.3); GFR > 60 ML/MIN (>=60 (CALC)); GFR FOR AFR.AMER. > 60 ML/MIN (>=60 (CALC)); POTASSIUM 4.4 mmol/l (3.5-5.1); SGOT/AST 20 u/l (19-48); SODIUM 131 mmol/l (137-146); TOTAL PROTEIN 6.4 g/dL (6.3-8.2)
[2020-07-09 19:35] LABS: ACT PARTIAL THROMBO TIME 24.5 SECONDS (20.0-32.5); INTERNATIONAL NORMALIZED RATIO 1.1 RATIO (0.7-1.3); PROTHROMBIN TIME 10.6 SECONDS (9.0-12.5)
[2020-07-09 19:37] LABS: CARBON DIOXIDE 33 mmol/l (22-30)
[2020-07-09 21:43] VITALS: BP 117/64
[2020-07-09 22:15] LABS: URINE BILIRUBIN - DIPSTICK NEGATIVE (NEGATIVE); URINE BLOOD DIPSTICK NEGATIVE (NEGATIVE); URINE COLOR YELLOW; URINE GLUCOSE - DIPSTICK >=1000 mg/dL (NEGATIVE); URINE KETONE NEGATIVE (NEGATIVE); URINE LEUK ESTERASE NEGATIVE (NEGATIVE); URINE NITRITE - DIPSTICK NEGATIVE (Negative); URINE PROTEIN - DIPSTICK NEGATIVE (NEG-TRACE); URINE SPECIFIC GRAVITY 1.015; URINE UROBILINOGEN - DIPSTICK 0.2 E.U./dL (0.2)
== END 2020-07-09 22:40 | disposition left against medical advice (07) ==
LOC: ED 17:25
PROVIDERS: Student in an Organized Health Care Education/Training Program
DX: R55 Syncope and collapse (principal); J44.0 Chronic obstructive pulmonary disease with (acute) lower respiratory infection; J20.9 Acute bronchitis, unspecified; E11.65 Type 2 diabetes mellitus with hyperglycemia; G40.909 Epilepsy, unspecified, not intractable, without status epilepticus; F17.200 Nicotine dependence, unspecified, uncomplicated; Z79.4 Long term (current) use of insulin; Z91.19 Patient's noncompliance with other medical treatment and regimen; Z20.822 Contact with and (suspected) exposure to COVID-19

== ENCOUNTER 2021-11-14 16:57 | Inpatient (IN) | payer MEDICARE, MEDICAID ==
[~2021-11-14] VITALS: Ht 147.3 cm; Wt 41.0 kg
[2021-11-14] VITALS (18 sets, daily range): BP systolic 100–150; BP diastolic 54–85
[2021-11-14 18:16] LABS: IMMATURE GRANULOCYTES 0.5 % (0.0-5.0); MEAN CELL VOLUME 90.7 fL CALC (80.0-100.0); MEAN CORPUSCULAR HGB 27.8 pG CALC (26.0-32.0); MEAN CORPUSCULAR HGB CONC 30.6 g/dL CAL (32.0-36.0); NEUT# 7.22 thou/uL (1.82-7.42); RED BLOOD COUNT 3.13 mill/uL (4.70-6.10); RED CELL DISTRI WIDTH 14.3 % (11.5-15.5)
[2021-11-14] MEDS ORDERED: LEVETIRACETAM500 M1 PO (18:16)
[2021-11-14 18:17] LABS: HEMATOCRIT 28.4 % (39.0-50.0); HEMOGLOBIN 8.7 g/dl (14.0-18.0)
[2021-11-14] MEDS ORDERED: NIACIN TR500 M1 PO (18:17)
[2021-11-14] MEDS ORDERED: GABAPENTIN100 MG PO (18:17)
[2021-11-14] MEDS ORDERED: (None)125 MG PO (18:18)
[2021-11-14] MEDS ORDERED: FARXIGA5 MG PO (18:18)
[2021-11-14] MEDS ORDERED: SERTRALINE50 MG PO (18:19)
[2021-11-14] MEDS ORDERED: ANTI-DIARRHE2 M1 PO (18:19)
[2021-11-14] MEDS ORDERED: OMEPRAZOLE DR40 MG PO (18:20)
[2021-11-14] MEDS ORDERED: TRESIBA FL100 UNIT/M (18:21)
[2021-11-14 18:30] LABS: ALBUMIN 3.2 g/dL (3.2-5.0); AMYLASE 61 u/l (30-110); BUN 19 mg/dL (8-23); BUN/CREATININE RATIO 26 (12-20 (CALC)); CHLORIDE 100 mmol/l (95-108); CREATININE 0.7 mg/dL (0.7-1.3); GFR FOR AFR.AMER. > 60 ML/MIN (>=60 (CALC)); GFR OTHER RACES > 60 ML/MIN (>=60 (CALC)); LIPASE 10 u/l (23-300); MAGNESIUM 2.1 mg/dL (1.6-2.3); POTASSIUM 3.9 mmol/l (3.5-5.1); SGOT/AST 20 u/l (19-48); SODIUM 135 mmol/l (137-146); TOTAL PROTEIN 6.6 g/dL (6.3-8.2)
[2021-11-14 18:35] LABS: ACT PARTIAL THROMBO TIME 30.4 SECONDS (20.0-32.5); ALKALINE PHOSPHATASE 491 u/l (38-126); ANION GAP 15 (6-22 (CALC)); BILIRUBIN, TOTAL 0.3 mg/dL (0.0-1.4); CARBON DIOXIDE 24 mmol/l (22-30); INTERNATIONAL NORMALIZED RATIO 1.1 RATIO (0.7-1.3); PROTHROMBIN TIME 11.2 SECONDS (9.0-12.5)
[2021-11-15] VITALS (7 sets, daily range): BP systolic 124–156; BP diastolic 64–87
[2021-11-15 05:29] LABS: HEMATOCRIT 26.6 % (39.0-50.0); HEMOGLOBIN 8.2 g/dl (14.0-18.0); MEAN CELL VOLUME 90.5 fL CALC (80.0-100.0); MEAN CORPUSCULAR HGB 27.9 pG CALC (26.0-32.0); MEAN CORPUSCULAR HGB CONC 30.8 g/dL CAL (32.0-36.0); RED BLOOD COUNT 2.94 mill/uL (4.70-6.10); RED CELL DISTRI WIDTH 14.4 % (11.5-15.5)
[2021-11-15 05:43] LABS: ANION GAP 11 (6-22 (CALC)); BUN 18 mg/dL (8-23); BUN/CREATININE RATIO 32 (12-20 (CALC)); CARBON DIOXIDE 26 mmol/l (22-30); CHLORIDE 106 mmol/l (95-108); CREATININE 0.6 mg/dL (0.7-1.3); GFR FOR AFR.AMER. > 60 ML/MIN (>=60 (CALC)); GFR OTHER RACES > 60 ML/MIN (>=60 (CALC)); SODIUM 138 mmol/l (137-146)
[2021-11-15 09:29] LABS: URINE BILIRUBIN - DIPSTICK NEGATIVE (NEGATIVE); URINE BLOOD DIPSTICK NEGATIVE (NEGATIVE); URINE GLUCOSE - DIPSTICK >=1000 mg/dL (NEGATIVE); URINE KETONE TRACE mg/dL (NEGATIVE); URINE LEUK ESTERASE TRACE (NEGATIVE); URINE PROTEIN - DIPSTICK 30 mg/dL (NEG-TRACE); URINE SPECIFIC GRAVITY 1.025; URINE UROBILINOGEN - DIPSTICK 0.2 E.U./dL (0.2)
[2021-11-15 09:33] LABS: URINE NITRITE - DIPSTICK NEGATIVE (Negative)
[2021-11-15 09:34] LABS: URINE COLOR DK. YELLOW; URINE EPITHELIAL CELLS FEW EPI/hpf (0-FEW); URINE MUCUS MODERATE hpf (NONE-FEW); URINE WBC 0-2 WBC/hpf (0-5)
[2021-11-16 04:36] VITALS: BP 117/61
[2021-11-16 06:48] VITALS: BP 122/70
[2021-11-16 08:00] VITALS: BP 122/70
[2021-11-16 16:31] VITALS: BP 144/66
[2021-11-16 16:40] VITALS: BP 144/66
[2021-11-16 20:03] VITALS: BP 141/83
[2021-11-17] VITALS (8 sets, daily range): BP systolic 107–121; BP diastolic 55–67
[2021-11-18 06:38] LABS: HEMATOCRIT 31.5 % (39.0-50.0); HEMOGLOBIN 9.5 g/dl (14.0-18.0); MEAN CELL VOLUME 91.3 fL CALC (80.0-100.0); MEAN CORPUSCULAR HGB 27.5 pG CALC (26.0-32.0); MEAN CORPUSCULAR HGB CONC 30.2 g/dL CAL (32.0-36.0); RED BLOOD COUNT 3.45 mill/uL (4.70-6.10); RED CELL DISTRI WIDTH 14.6 % (11.5-15.5)
[2021-11-18 07:00] LABS: ANION GAP 13 (6-22 (CALC)); BUN 19 mg/dL (8-23); BUN/CREATININE RATIO 27 (12-20 (CALC)); CARBON DIOXIDE 22 mmol/l (22-30); CHLORIDE 109 mmol/l (95-108); CREATININE 0.7 mg/dL (0.7-1.3); GFR FOR AFR.AMER. > 60 ML/MIN (>=60 (CALC)); GFR OTHER RACES > 60 ML/MIN (>=60 (CALC)); MAGNESIUM 1.7 mg/dL (1.6-2.3); POTASSIUM 4.4 mmol/l (3.5-5.1); SODIUM 140 mmol/l (137-146)
[2021-11-18 07:11] VITALS: BP 109/64
[2021-11-18 08:00] VITALS: BP 109/64
[2021-11-18 20:00] VITALS: BP 118/65
[2021-11-18 22:00] VITALS: BP 89/59
[2021-11-19] VITALS (45 sets, daily range): BP systolic 121–146; BP diastolic 61–84
[2021-11-19 05:02] LABS: HEMATOCRIT 30.5 % (39.0-50.0); HEMOGLOBIN 9.2 g/dl (14.0-18.0); IMMATURE GRANULOCYTES 0.3 % (0.0-5.0); MEAN CELL VOLUME 90.5 fL CALC (80.0-100.0); MEAN CORPUSCULAR HGB 27.3 pG CALC (26.0-32.0); MEAN CORPUSCULAR HGB CONC 30.2 g/dL CAL (32.0-36.0); NEUT# 12.12 thou/uL (1.82-7.42); RED BLOOD COUNT 3.37 mill/uL (4.70-6.10); RED CELL DISTRI WIDTH 14.9 % (11.5-15.5)
[2021-11-19 05:18] LABS: ALKALINE PHOSPHATASE 388 u/l (38-126); ANION GAP 15 (6-22 (CALC)); BILIRUBIN, TOTAL 0.4 mg/dL (0.0-1.4); BUN 19 mg/dL (8-23); BUN/CREATININE RATIO 23 (12-20 (CALC)); CARBON DIOXIDE 23 mmol/l (22-30); CHLORIDE 108 mmol/l (95-108); CREATININE 0.8 mg/dL (0.7-1.3); GFR FOR AFR.AMER. > 60 ML/MIN (>=60 (CALC)); GFR OTHER RACES > 60 ML/MIN (>=60 (CALC)); POTASSIUM 4.3 mmol/l (3.5-5.1); SGOT/AST 19 u/l (19-48); SODIUM 142 mmol/l (137-146); TOTAL PROTEIN 6.3 g/dL (6.3-8.2)
[2021-11-19 05:46] LABS: C-REACTIVE PROTEIN > 27.0 mg/dL (0-0.9)
[2021-11-20] VITALS (23 sets, daily range): BP systolic 132–158; BP diastolic 72–91
[2021-11-20 05:37] LABS: HEMATOCRIT 30.7 % (39.0-50.0); HEMOGLOBIN 9.4 g/dl (14.0-18.0); MEAN CORPUSCULAR HGB 27.2 pG CALC (26.0-32.0); MEAN CORPUSCULAR HGB CONC 30.6 g/dL CAL (32.0-36.0); RED BLOOD COUNT 3.45 mill/uL (4.70-6.10)
[2021-11-20 06:04] LABS: ANION GAP 14 (6-22 (CALC)); BUN 27 mg/dL (8-23); BUN/CREATININE RATIO 30 (12-20 (CALC)); CARBON DIOXIDE 29 mmol/l (22-30); CHLORIDE 106 mmol/l (95-108); CREATININE 0.9 mg/dL (0.7-1.3); GFR FOR AFR.AMER. > 60 ML/MIN (>=60 (CALC)); GFR OTHER RACES > 60 ML/MIN (>=60 (CALC)); MAGNESIUM 1.6 mg/dL (1.6-2.3); POTASSIUM 3.9 mmol/l (3.5-5.1); SODIUM 145 mmol/l (137-146)
[2021-11-21] VITALS (21 sets, daily range): BP systolic 121–160; BP diastolic 58–91
[2021-11-21 05:36] LABS: HEMATOCRIT 31.9 % (39.0-50.0); HEMOGLOBIN 9.8 g/dl (14.0-18.0); MEAN CELL VOLUME 88.1 fL CALC (80.0-100.0); MEAN CORPUSCULAR HGB 27.1 pG CALC (26.0-32.0); MEAN CORPUSCULAR HGB CONC 30.7 g/dL CAL (32.0-36.0); RED BLOOD COUNT 3.62 mill/uL (4.70-6.10); RED CELL DISTRI WIDTH 14.9 % (11.5-15.5)
[2021-11-21 05:53] LABS: ANION GAP 13 (6-22 (CALC)); BUN 27 mg/dL (8-23); BUN/CREATININE RATIO 34 (12-20 (CALC)); CARBON DIOXIDE 32 mmol/l (22-30); CHLORIDE 98 mmol/l (95-108); CREATININE 0.8 mg/dL (0.7-1.3); GFR FOR AFR.AMER. > 60 ML/MIN (>=60 (CALC)); GFR OTHER RACES > 60 ML/MIN (>=60 (CALC)); MAGNESIUM 1.7 mg/dL (1.6-2.3); POTASSIUM 3.6 mmol/l (3.5-5.1); SODIUM 140 mmol/l (137-146)
[2021-11-22] VITALS (7 sets, daily range): BP systolic 124–158; BP diastolic 69–85
[2021-11-22 05:20] LABS: HEMATOCRIT 31.9 % (39.0-50.0); HEMOGLOBIN 9.6 g/dl (14.0-18.0); MEAN CELL VOLUME 89.1 fL CALC (80.0-100.0); MEAN CORPUSCULAR HGB 26.8 pG CALC (26.0-32.0); MEAN CORPUSCULAR HGB CONC 30.1 g/dL CAL (32.0-36.0); RED BLOOD COUNT 3.58 mill/uL (4.70-6.10); RED CELL DISTRI WIDTH 14.5 % (11.5-15.5)
[2021-11-22 05:36] LABS: ANION GAP 11 (6-22 (CALC)); BUN 27 mg/dL (8-23); BUN/CREATININE RATIO 38 (12-20 (CALC)); CARBON DIOXIDE 31 mmol/l (22-30); CHLORIDE 99 mmol/l (95-108); CREATININE 0.7 mg/dL (0.7-1.3); GFR FOR AFR.AMER. > 60 ML/MIN (>=60 (CALC)); GFR OTHER RACES > 60 ML/MIN (>=60 (CALC)); MAGNESIUM 1.8 mg/dL (1.6-2.3); POTASSIUM 4.2 mmol/l (3.5-5.1); SODIUM 137 mmol/l (137-146)
[2021-11-23 00:11] VITALS: BP 131/65
[2021-11-23 04:00] VITALS: BP 124/65
[2021-11-23 04:25] VITALS: BP 124/65
[2021-11-23 06:17] LABS: HEMATOCRIT 33.1 % (39.0-50.0); HEMOGLOBIN 10.1 g/dl (14.0-18.0); MEAN CELL VOLUME 88.3 fL CALC (80.0-100.0); MEAN CORPUSCULAR HGB 26.9 pG CALC (26.0-32.0); MEAN CORPUSCULAR HGB CONC 30.5 g/dL CAL (32.0-36.0); RED BLOOD COUNT 3.75 mill/uL (4.70-6.10); RED CELL DISTRI WIDTH 14.3 % (11.5-15.5)
[2021-11-23 06:22] LABS: ANION GAP 7 (6-22 (CALC)); BUN 21 mg/dL (8-23); BUN/CREATININE RATIO 29 (12-20 (CALC)); CARBON DIOXIDE 35 mmol/l (22-30); CHLORIDE 96 mmol/l (95-108); CREATININE 0.7 mg/dL (0.7-1.3); GFR FOR AFR.AMER. > 60 ML/MIN (>=60 (CALC)); GFR OTHER RACES > 60 ML/MIN (>=60 (CALC)); POTASSIUM 3.4 mmol/l (3.5-5.1); SODIUM 135 mmol/l (137-146)
[2021-11-23 08:46] VITALS: BP 124/67
[2021-11-23] MEDS ORDERED: TAMSULOSIN HCL0.4 MG PO (12:17)
[2021-11-23] MEDS ORDERED: AMOX/K CLAV875 M1 PO (12:18)
[2021-11-23] MEDS ORDERED: MEDDOSEPAK PO (12:20)
[2021-11-23 12:47] VITALS: BP 140/76
== END 2021-11-23 14:10 | disposition home or self-care (01) | DRG 193 ==
LOC: ED 16:57 → ED-I 20:47 → ED 20:56 → MS2 20:57 → ICU 11-18 10:23 → MS2 11-21 13:32
PROVIDERS: Hospitalist; ADMIT Internal Medicine; ATTEND Internal Medicine
PROC: 5A09357 Assistance with Respiratory Ventilation, Less than 24 Consecutive Hours, Continuous Positive Airway Pressure (ICD-10-PCS; principal; 2021-11-19)
PROC: 0T9B70Z Drainage of Bladder with Drainage Device, Via Natural or Artificial Opening (ICD-10-PCS; 2021-11-19)
PROC: 0W993ZZ Drainage of Right Pleural Cavity, Percutaneous Approach (ICD-10-PCS; 2021-11-20)
PROC: 0T9B70Z Drainage of Bladder with Drainage Device, Via Natural or Artificial Opening (ICD-10-PCS; 2021-11-23)
DX: J18.9 Pneumonia, unspecified organism (principal); J96.21 Acute and chronic respiratory failure with hypoxia; J96.22 Acute and chronic respiratory failure with hypercapnia; J44.1 Chronic obstructive pulmonary disease with (acute) exacerbation; R64 Cachexia; Z68.1 Body mass index [BMI] 19.9 or less, adult; J91.8 Pleural effusion in other conditions classified elsewhere; J44.0 Chronic obstructive pulmonary disease with (acute) lower respiratory infection; E11.40 Type 2 diabetes mellitus with diabetic neuropathy, unspecified; E11.649 Type 2 diabetes mellitus with hypoglycemia without coma; R33.9 Retention of urine, unspecified; G40.909 Epilepsy, unspecified, not intractable, without status epilepticus; R13.10 Dysphagia, unspecified; R62.7 Adult failure to thrive; F17.200 Nicotine dependence, unspecified, uncomplicated; Z99.81 Dependence on supplemental oxygen; Z79.4 Long term (current) use of insulin; Z86.19 Personal history of other infectious and parasitic diseases; Z86.711 Personal history of pulmonary embolism; Z20.822 Contact with and (suspected) exposure to COVID-19
CPT/HCPCS: J1650; J1953; J3370; Q9967; S0164

== ENCOUNTER 2021-12-02 23:05 | Emergency (ER) | payer MEDICARE, MEDICAID ==
[~2021-12-02] VITALS: Ht 147.3 cm; Wt 40.0 kg
[~2021-12-02 23:05] MED LIST changes: +(None)125 MG PO; +ANTI-DIARRHE2 M1 PO; +FARXIGA5 MG PO; +GABAPENTIN100 MG PO; +LEVETIRACETAM500 M1 PO; +MEDDOSEPAK PO; +NIACIN TR500 M1 PO; +OMEPRAZOLE DR40 MG PO; +SERTRALINE50 MG PO; +TAMSULOSIN HCL0.4 MG PO; +TRESIBA FL100 UNIT/M
[2021-12-02 23:15] VITALS: BP 102/65
[2021-12-02 23:30] VITALS: BP 108/58
[2021-12-03] VITALS: BP 97/56
[2021-12-03 00:12] LABS: URINE BILIRUBIN - DIPSTICK NEGATIVE (NEGATIVE); URINE BLOOD DIPSTICK LARGE (NEGATIVE); URINE COLOR YELLOW; URINE GLUCOSE - DIPSTICK >=1000 mg/dL (NEGATIVE); URINE KETONE NEGATIVE (NEGATIVE); URINE LEUK ESTERASE TRACE (NEGATIVE); URINE NITRITE - DIPSTICK NEGATIVE (Negative); URINE PROTEIN - DIPSTICK NEGATIVE (NEG-TRACE); URINE UROBILINOGEN - DIPSTICK 0.2 E.U./dL (0.2)
[2021-12-03] MEDS ORDERED: CIPROFLOXACN500 MG PO (00:14)
[2021-12-03 00:16] LABS: URINE BACTERIA FEW hpf; URINE SQUAMOUS EPITHELIAL CELL FEW EPI/hpf (0-FEW); URINE WBC 50-100 WBC/hpf (0-5)
[2021-12-03 00:20] VITALS: BP 97/56
== END 2021-12-03 00:30 | disposition home or self-care (01) ==
LOC: ED 23:05
PROC: 0T2BX0Z Change Drainage Device in Bladder, External Approach (ICD-10-PCS; principal; 2021-12-02)
DX: T83.84XA Pain due to genitourinary prosthetic devices, implants and grafts, initial encounter (principal); N39.0 Urinary tract infection, site not specified; E11.9 Type 2 diabetes mellitus without complications; G40.909 Epilepsy, unspecified, not intractable, without status epilepticus; F17.200 Nicotine dependence, unspecified, uncomplicated; R64 Cachexia; Y84.6 Urinary catheterization as the cause of abnormal reaction of the patient, or of later complication, without mention of misadventure at the time of the procedure; Z79.4 Long term (current) use of insulin

== ENCOUNTER 2021-12-07 11:48 | Emergency (ER) | payer MEDICARE, MEDICAID ==
[2021-12-07] VITALS (10 sets, daily range): BP systolic 83–136; BP diastolic 51–87
[~2021-12-07] VITALS: Ht 147.3 cm; Wt 38.2 kg
[~2021-12-07 11:48] MED LIST changes: +CIPROFLOXACN500 MG PO
[2021-12-07 12:25] LABS: HEMATOCRIT 30.5 % (39.0-50.0); HEMOGLOBIN 9.2 g/dl (14.0-18.0); IMMATURE GRANULOCYTES 0.3 % (0.0-5.0); MEAN CELL VOLUME 90.8 fL CALC (80.0-100.0); MEAN CORPUSCULAR HGB 27.4 pG CALC (26.0-32.0); MEAN CORPUSCULAR HGB CONC 30.2 g/dL CAL (32.0-36.0); NEUT# 6.73 thou/uL (1.82-7.42); RED BLOOD COUNT 3.36 mill/uL (4.70-6.10); RED CELL DISTRI WIDTH 16.6 % (11.5-15.5)
[2021-12-07 12:35] LABS: ALBUMIN 2.9 g/dL (3.2-5.0); BILIRUBIN, TOTAL 0.3 mg/dL (0.0-1.4); BUN 28 mg/dL (8-23); BUN/CREATININE RATIO 34 (12-20 (CALC)); CHLORIDE 105 mmol/l (95-108); CREATININE 0.8 mg/dL (0.7-1.3); GFR FOR AFR.AMER. > 60 ML/MIN (>=60 (CALC)); GFR OTHER RACES > 60 ML/MIN (>=60 (CALC)); SGOT/AST 28 u/l (19-48); SODIUM 133 mmol/l (137-146)
[2021-12-07 12:36] LABS: ACT PARTIAL THROMBO TIME 29.1 SECONDS (20.0-32.5); INTERNATIONAL NORMALIZED RATIO 1.2 RATIO (0.7-1.3); PROTHROMBIN TIME 12.8 SECONDS (9.0-12.5)
[2021-12-07 12:38] LABS: ALKALINE PHOSPHATASE 144 u/l (38-126); ANION GAP 9 (6-22 (CALC)); CARBON DIOXIDE 24 mmol/l (22-30); POTASSIUM 4.8 mmol/l (3.5-5.1)
== END 2021-12-07 15:05 | disposition home or self-care (01) ==
LOC: ED 11:48
DX: S42.202A Unspecified fracture of upper end of left humerus, initial encounter for closed fracture (principal); E11.9 Type 2 diabetes mellitus without complications; G40.909 Epilepsy, unspecified, not intractable, without status epilepticus; F17.200 Nicotine dependence, unspecified, uncomplicated; Z79.4 Long term (current) use of insulin; X58.XXXA Exposure to other specified factors, initial encounter; Z99.81 Dependence on supplemental oxygen

== ENCOUNTER 2023-06-13 11:13 | Emergency (ER) | payer MEDICARE, MEDICAID ==
[~2023-06-13] VITALS: Ht 147.3 cm; Wt 39.1 kg
[2023-06-13] VITALS (34 sets, daily range): BP systolic 54–100; BP diastolic 31–53
[2023-06-13 11:47] LABS: BASO% 0.2 % (0-3); HEMATOCRIT 29.5 % (39.0-50.0); LYMPH% 10.1 % (15-41); MEAN CELL VOLUME 91.3 fL CALC (80.0-100.0); MEAN CORPUSCULAR HGB 27.9 pG CALC (26.0-32.0); MEAN CORPUSCULAR HGB CONC 30.5 g/dL CAL (32.0-36.0); MONO% 5.1 % (2-13); NEUT# 8.09 thou/uL (1.82-7.42); NEUT% 84.2 % (42-76); RED BLOOD COUNT 3.23 mill/uL (4.70-6.10); RED CELL DISTRI WIDTH 14.5 % (11.5-15.5)
[2023-06-13 12:05] LABS: ALBUMIN 3.3 g/dL (3.2-5.0); TOTAL PROTEIN 6.2 g/dL (6.3-8.2)
[2023-06-13 12:23] LABS: IMMATURE GRANULOCYTES 0.4 % (0.0-5.0)
[2023-06-13 12:25] LABS: BILIRUBIN, TOTAL 0.7 mg/dL (0.2-1.3); CREATININE 4.9 mg/dL (0.7-1.3); POTASSIUM 5.8 mmol/l (3.5-5.1)
[2023-06-13 14:28] LABS: URINE BLOOD DIPSTICK Moderate (NEGATIVE); URINE GLUCOSE - DIPSTICK Negative (NEGATIVE); URINE KETONE 40 mg/dL (NEGATIVE); URINE LEUK ESTERASE Negative (NEGATIVE); URINE NITRITE - DIPSTICK Negative (Negative); URINE PH 8.5 (4.5-8.0); URINE PROTEIN - DIPSTICK 100 mg/dL (NEG-TRACE); URINE UROBILINOGEN - DIPSTICK 0.2 E.U./dL (0.2)
[2023-06-13 14:41] LABS: URINE COLOR Yellow
[2023-06-13 14:44] LABS: URINE BACTERIA MANY hpf
== END 2023-06-13 16:02 | disposition short-term general hospital (02) ==
LOC: ED 11:13
PROVIDERS: Emergency Medicine
PROC: 0T9B70Z Drainage of Bladder with Drainage Device, Via Natural or Artificial Opening (ICD-10-PCS; principal; 2023-06-13)
DX: N17.9 Acute kidney failure, unspecified (principal); R33.9 Retention of urine, unspecified; E87.20 Acidosis, unspecified; I11.0 Hypertensive heart disease with heart failure; I50.9 Heart failure, unspecified; E11.9 Type 2 diabetes mellitus without complications; F17.200 Nicotine dependence, unspecified, uncomplicated; G40.909 Epilepsy, unspecified, not intractable, without status epilepticus; Z79.4 Long term (current) use of insulin; Z20.822 Contact with and (suspected) exposure to COVID-19